=== PATIENT | female | born 1970 | race Caucasian/White ===

== ENCOUNTER → 2020-07-21 16:06 | Outpatient (CLI) | payer OTHER, BC, SELFPAY ==
--- NOTE | ~2020-07-21 | XR_ITS ---
EXAMINATION: XR lumbar spine 2-3V DATE: 07/21/2020 16:24 INDICATION: Lumbosacral radiculopathy TECHNIQUE: Anteroposterior and lateral views of the lumbar spine, and cone-down lateral view of the l umbosacral junction were obtained. COMPARISON: None. FINDINGS: There is no fracture, dislocation, or subluxation. The vertebral body heights are maintaine d. There is mild loss of intervertebral disc space height at L5-S1. Small degenerative osteophytes pr oject from the anterior endplates of multiple vertebral bodies. A moderate volume of colonic stool is present. IMPRESSION: 1. Mild lumbar spondylosis without acute findings. Reviewed, dictated and finalized at location A. POOER
== END ==
PROVIDERS: PCP Family Medicine; Visit Provider Family Medicine
DX: M47.26 Other spondylosis with radiculopathy, lumbar region (principal)
CPT/HCPCS: 72100

== ENCOUNTER 2020-08-26 07:30 | Outpatient (RCR) | payer OTHER, BC, SELFPAY ==
--- NOTE | 2020-07-26 11:10 | PTOPEVAL ---
Thank you for referring Lina Beth to [facility].? The patient is scheduled to be seen for therapy? 2 x/week for 5 weeks. Please review, sign, date and return this plan of care MART. I agree with and certify that the following plan of care is medically necessary. Referring Physician Date Attending Provider: Susanna Engle MD *PT Outpatient Evaluation Start: 07/26/20 09:41 Freq: Status: Active Protocol: Document 07/26/20 09:46 JIM (Rec: 07/26/20 10:44 JIM [id number]) Therapy Assessment Status Assessment Status Assessment Status Evaluation Outpatient Past Medical History Past Medical History Source of Past Medical History Patient,Recalled from Previous Visit, Confirmed with Patient /Family Neurological History Hx Neurological Disorders No Significant History Cardiovascular History Hx Cardiac Disorders No Significant History Respiratory History Hx Respiratory Disorders No Significant History Gastrointestinal History Hx Gastrointestinal Disorders No Significant History Musculoskeletal History Hx Back Pain Yes Hx Orthopedic Surgery Yes: right meniscus repair Endocrine History Hx Endocrine Disorders No Significant History Evaluation Information Problem Diagnosis back pain wiht r Onset summer 2019 Cause yardwork Additional Evaluation Detail She has been placed on an anti inflammatory that has improved her symptoms. Subjective Information She was doing a lot of outside Query Text:As Reported By Patient/ yard work of shoveling and Family lifting this summer. She noticed soreness that did not improve. In Apr she was driving a lower sport car with manual transmission. She reports left low back and left leg pain. She has tried chiropractor and stretching without improved symptoms. She reports increased pain with sitting, sleeping and lifting act. Reports symptoms are improved in standing. She has trouble lifting left LE with ADL's. She is usually a side sleeper, but has increased pain. Radiating pain from hip to
--- NOTE | 2020-08-23 07:40 | PCPTNOTE ---
Patient called & cancelled scheduled appointment this date per therapist.
--- NOTE | 2020-08-26 10:54 | PTOPEVAL ---
Thank you for referring Lina Beth to [facility].? Pt has been seen for 9 therapy visits to address back and leg symptoms. She demonstrates a decline in her function, joint motion and strength regardless of therapy treatment provided. Recommend Lina to f/u with her doctor to determine the next treatment option for her symptoms. Will hold chart open for 30 days. If no additional visits scheduled, this note will be her discharge note. Please review, sign, date and return this plan of care MART. I agree with and certify that the following plan of care is medically necessary. Referring Physician Date Attending Provider: Susanna Engle MD Referring Provider: *PT Outpatient Evaluation Start: 07/26/20 09:41 Freq: Status: Active Protocol: Document 08/26/20 07:33 CAP (Rec: 08/26/20 08:21 CAP [id number]) Therapy Assessment Status Assessment Status Assessment Status Re-evaluation Outpatient Past Medical History Past Medical History Source of Past Medical History Patient,Recalled from Previous Visit, Confirmed with Patient /Family Neurological History Hx Neurological Disorders No Significant History Cardiovascular History Hx Cardiac Disorders No Significant History Respiratory History Hx Respiratory Disorders No Significant History Gastrointestinal History Hx Gastrointestinal Disorders No Significant History Musculoskeletal History Hx Back Pain Yes Hx Orthopedic Surgery Yes: right meniscus repair Endocrine History Hx Endocrine Disorders No Significant History Evaluation Information Problem Diagnosis back pain with radiating symptoms Onset summer 2019 Cause yardwork Additional Evaluation Detail She has been placed on an anti inflammatory that has improved her symptoms. Subjective Information She reports a change in pain Query Text:As Reported By Patient/ with increased pain with Family distance walking that seems to increase vs decrease. She reports continued left low back with radiating symptoms into left leg pain. She reports cont increased pain with sitting, sleeping and lifting act. Reports symptoms are improved in standing. She has trouble lifting left LE with ADL's. Radiating pain is sharp/ache with radiating numbness/
--- NOTE | 2020-09-28 10:38 | PCPTNOTE ---
Admitting Provider: Attending Provider: Susanna Engle MD Patient:Lina Beth Date of :1970 Patient has not returned for any further treatments since 08/26/2020, therefore she will be discharged at this time. Patient?s was seen from 07/26/2020 -08/26/20 for 9 visits. An update had been sent to MD at her last visit with DC recommended on 08/26/20. The goals have been partially met. Thank you for referring this patient to [facility]. Please review, sign, date and return this discharge summary MART.
== END 2020-09-28 12:50 | disposition home or self-care (01) ==
LOC: ANHPT 07:30
PROVIDERS: PCP Family Medicine; Visit Provider Family Medicine
DX: M54.17 Radiculopathy, lumbosacral region (principal)
CPT/HCPCS: 97014; 97110; 97140; 97162; G0283

== ENCOUNTER → 2020-09-04 11:41 | Outpatient (CLI) | payer OTHER, BC, SELFPAY ==
--- NOTE | ~2020-09-04 | MR_ITS ---
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 TECHNIQUE: Multi-sequential, multiplanar MR images of the lumbar spine were obtained without contrast . Sagittal T1, T2, T2 fat saturation images. Axial T2 weighted images. There is no prior study for comparison. FINDINGS: There is 4 mm retrolisthesis L5 on S1 with mild to moderate loss of this disc height. The v ertebral bodies are otherwise aligned. The vertebral body and disc heights are otherwise well maintai alvin. The conus medullaris terminates at the T12-L1 level and has normal signal intensity and morpholo gy. There are no suspicious marrow signal abnormalities. Paraspinal soft tissue is unremarkable. Level by level evaluation: T11-12: Disc does not extend beyond the endplate margin. Facet arthropathy: Mild. Neural foraminal stenosis: No stenosis. Central canal stenosis: No stenosis. T12-L1: Disc does not extend beyond the endplate margin. Facet arthropathy: None. Neural foraminal stenosis: No stenosis. Central canal stenosis: No stenosis. L1-L2: Disc does not extend beyond the endplate margin. Facet arthropathy: Mild. Neural foraminal stenosis: No stenosis. Central canal stenosis: No stenosis. L2-L3: There is a minimal diffuse disc bulge. Facet arthropathy: Mild. Neural foraminal stenosis: No stenosis. Central canal stenosis: No stenosis. L3-L4: There is a mild diffuse disc bulge. Facet arthropathy: Mild. Neural foraminal stenosis: No stenosis. Central canal stenosis: No stenosis. L4-L5: There is a mild to moderate diffuse disc bulge. Facet arthropathy: Mild to moderate. Neural foraminal stenosis: No stenosis. Central canal stenosis: Mild. L5-S1: There is a moderate diffuse disc bulge. Facet arthropathy: Mild. Neural foraminal stenosis: Mild left. Central canal stenosis: Mild to moderate, mild narrowing of the left lateral recess. IMPRESSION: L5-S1 grade 1 retrolisthesis, moderate disc bulge. Reviewed, dictated and finalized at location A. [employer]
== END ==
PROVIDERS: PCP Family Medicine; Visit Provider Family Medicine
DX: M47.27 Other spondylosis with radiculopathy, lumbosacral region (principal); M48.07 Spinal stenosis, lumbosacral region
CPT/HCPCS: 72148

== ENCOUNTER 2021-02-17 17:13 | Emergency (ER) | payer OTHER, BC, SELFPAY ==
--- NOTE | ~2021-02-17 | XR_ITS ---
XR foot LT min 3V 02/17/2021 17:31 INDICATION: Left foot pain PROCEDURE: 4 views left foot COMPARISON: 06/15/2015 FINDINGS: Fracture, dislocation or subluxation is not identified. Lisfranc joint intact. The soft tis sues appear within normal limits. No foreign bodies are identified. There is prominent degenerative calcaneal enthesophyte. IMPRESSION: 1: NO ACUTE BONE OR JOINT ABNORMALITY IDENTIFIED. Reviewed, dictated and finalized at location A.
[2021-02-17 17:38] VITALS: BP 102/84; PULSE 60; RESP 16; TEMP 37.4; O2SAT 100
--- NOTE | 2021-02-17 18:04 | ED.LOWEXIN ---
HPI - Extremity Injury (Lower) General Chief Complaint: Extremity Injury, Lower Stated Complaint: lt foot injury Source: patient and RN notes reviewed Limitations: no limitations History of Present Illness HPI Narrative: The patient presents with left foot pain that is mild, worse with motion, better at rest, it began half day ago when it was caught in a door. No bleeding, deformity, and pain is most predominant on the metatarsals and arch Related Data Home Medications Medication Instructions Recorded Confirmed fluticasone propionate 50 1 spray INTRANASAL DAILY 07/21/20 02/17/21 mcg/actuation nasal spray,suspension Allergies Allergy/AdvReac Type Severity Reaction Status Date / Time nitrofurantoin Allergy Unknown MUSCLE AND Verified 02/17/21 17:43 BONE ACHES Review of Systems Review of Systems: Narrative: General/Constitutional: No weight loss,fever Eyes: N0: Redness,discharge Ears/Nose/Throat: No: Epistaxis,ear discharge Respiratory: Denies: Hemoptysis Gastrointestinal: No Vomiting, Bleeding-rectal Skin: No Lumps, eruption Neurologic: No Focal Weakness,Sz Hematologic: Denies: Petechiae/Purpura Psychiatric: No: Suicida ideationl All Other Systems: Reviewed and Negative PMFSH Family History Family History Grandparent Hypertension Malignant neoplasm of prostate Family history of malignant neoplasm of urinary bladder Diabetes mellitus Family history of cardiovascular disease Family history of Alzheimer's disease Father Malignant neoplasm of prostate Alzheimer disease Mother Family history of cardiovascular disease A-fib Other Family history of arthritis Family history of elevated blood lipids Social History Social History Alcohol intake: current Comments At time of signature, agree with nursing past medical, surgical, social and family history. There is no relevant family history pertinent to the presenting complaint Exam Narrative: Exam Narrative: General Appearance: Well appearing, Well nourished, conjunctiva clear Mouth/Throat: Normal appearing, Normal lips, Supple Respiratory: Airway patent, No respiratory distress MS-foot: Nl strength (mostly intact, limited flexion/extension by pain), Tenderness (proximal metatarsals, with mild decreased ROM), no swelling , Other (no anterior drawer, no collateral laxity, no Achilles tenderness, no fifth MT tenderness) Skin: Warm, Dry, Normal color Neurological: A&O x3, Speech clear,, Normal affect Course Course Emergency Course: Films visualized, interpreted by radiologist, agree, normal see report Vital Signs Vital signs: Vital Signs Temperature 99.3 F 02/17/21 17:38 Pulse Rate 60 02/17/21 17:38 Respiratory Rate 16 02/17/21 17:38 Blood Pressure 102/84 02/17/21 17:38 Pulse Oximetry 100 02/17/21 17:38 Temperature 99.3 F 02/17/21 17:38 Pulse Rate 60 02/17/21 17:38 Respiratory Rate 16 02/17/21 17:38 Blood Pressure 102/84 02/17/21 17:38 Pulse Oximetry 100 02/17/21 17:38 Discharge Plan Discharge Clinical Impression: Contusion of foot, left Qualifiers: Encounter type: initial encounter Qualified Code(s): S90.32XA - Contusion of left foot, initial encounter Patient Disposition: Home, Self-Care Condition: Stable Instructions: Foot Sprain (ED) Prescriptions: New tramadol 50 mg tablet 50 - 75 mg PO TID PRN (Reason: pain) Qty: 20 RF: 0 No Action fluticasone propionate [Flonase Allergy Relief] 50 mcg/actuation spray,suspension 1 spray intranasal DAILY RF: 0 Follow-up/Referrals: Susanna Engle MD [Primary Care Provider] -
== END 2021-02-17 18:35 | disposition home or self-care (01) ==
PROVIDERS: Emergency Provider Emergency Medicine; PCP Family Medicine
DX: S90.32XA Contusion of left foot, initial encounter (principal); W23.0XXA Caught, crushed, jammed, or pinched between moving objects, initial encounter
CPT/HCPCS: 73630; 99213; G0463

== ENCOUNTER → 2022-05-19 07:35 | Outpatient (CLI) | payer OTHER, BC, SELFPAY ==
--- NOTE | ~2022-05-19 | MR_ITS ---
EXAMINATION: MR knee LT wo con DATE: 05/19/2022 08:22 INDICATION: Left knee pain TECHNIQUE: Magnetic resonance imaging (MRI) of the left knee was performed without intravenous contra st. Sequences included coronal PD-weighted FSE, coronal PD-weighted FS FSE, sagittal T2-weighted FSE , sagittal PD-weighted FS FSE and axial PD weighted fat saturated FSE. COMPARISON: Left knee radiographs dated 05/03/2022 FINDINGS: Medial compartment: Medial meniscal tear, complex at the meniscal body and with a longitudinal horizontal tear plane exte nding more posteriorly into the posterior horn. Mild partial-thickness cartilage loss with minimal ch ondral surface regularity along the anterior to central weightbearing medial femoral condyle and cent ral aspect of the medial tibial plateau. Lateral compartment: Lateral meniscus is normal. Partial-thickness cartilage loss with smooth chondral surface along the l ateral half of the posterior weightbearing lateral femoral condyle. Patellofemoral compartment: Deep chondral fissuring with mild underlying subarticular cystlike and edema-like changes at the figueredo llar apical ridge and the cephalad aspect of the medial facet. Additional deep chondral fissuring at the caudal aspect of the lateral trochlea and trochlear groove. Ligaments and tendons: Anterior and posterior cruciate ligaments are normal. The medial collateral ligament and fibular hermila ateral ligament complex are normal. The extensor mechanism is normal. The visualized medial and later al hamstring tendons as well as the iliotibial band are normal. Fluid: Physiologic amount of fluid in the joint space. No loose osteochondral bodies identified. Small Weber 's cyst with trace amount of fluid. Osseous/other: Aside from the mild subarticular edema-like signal change at the patella there is normal marrow signa l. No fracture or pathologic marrow replacing process. IMPRESSION: 1. Complex medial meniscal tear. 2. 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 Reviewed, dictated and finalized at location A. IMPRESSION: 1. Complex medial meniscal tear. 2. 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
== END ==
PROVIDERS: PCP Family Medicine; Visit Provider Orthopaedic Surgery
DX: S83.232D Complex tear of medial meniscus, current injury, left knee, subsequent encounter (principal); X58.XXXD Exposure to other specified factors, subsequent encounter; M17.12 Unilateral primary osteoarthritis, left knee
CPT/HCPCS: 73721

== ENCOUNTER 2022-05-26 00:54 | Day surgery (SDC) | payer OTHER, BC, SELFPAY ==
[2022-05-12 10:15] VITALS: BMI 34.0
[2022-05-26 10:29] VITALS: BP 120/70; PULSE 59; RESP 17; TEMP 36.3; O2SAT 100
[2022-05-26] MEDS: LACTATED RINGERS 1,000 ML 150 ML IV CONT (10:38)
--- NOTE | 2022-05-26 10:40 | WPDANESEPPF ---
Anes - Initial Pre Proc Eval Procedure: Operation Date: 05/26/22 11:30 Proposed Procedures p Screening Colonoscopy - Delio Retana MD Date/Time: 05/26/22 10:40 Surgeon: Delio Retana MD Pre Op Diagnosis: neoplasm screening Patient Data Age: 51 Gender: F Height: 1.75 m Weight: 107.1 kg Last Vital Signs Temp 97.3 F L 05/26/22 10:29 Pulse 59 L 05/26/22 10:29 Resp 17 05/26/22 10:29 BP 120/70 05/26/22 10:29 Pulse Ox 100 05/26/22 10:29 O2 Del Method Room Air 05/26/22 10:29 Allergies Allergy/AdvReac Type Severity Reaction Status Date / Time nitrofurantoin Allergy Unknown MUSCLE AND Verified 05/26/22 10:27 BONE ACHES Home Medications Medication Instructions Recorded Confirmed Type fluticasone propionate 50 1 spray intranasal DAILY 07/21/20 05/26/22 History mcg/actuation nasal spray,suspension (Flonase Allergy Relief) tizanidine 4 mg tablet 4 mg PO QHS PRN Sleep 04/20/21 05/26/22 History atorvastatin 20 mg tablet 20 mg PO QHS #90 tabs 04/20/22 05/26/22 Rx semaglutide 0.25 mg or 0.5 mg (2 0.25 mg (0.2 mL) subcut WEEKLY 04/20/22 05/26/22 Rx mg/1.5 mL) subcutaneous pen #1.5 mL injector duloxetine 30 mg capsule,delayed 60 mg PO DAILY 05/12/22 05/26/22 History release multivitamin 1 tablet PO DAILY 05/12/22 05/26/22 History Patient hx anesthesia problems: none Family hx anesthesia problems: none Results Review: All pre-operative results and documents have been reviewed as part of the pre-operative evaluation. [facility] Past Medical History Medical History (Updated 05/08/22 @ 17:53 by Sruthi Hammond) Acute medial meniscus tear of left knee Depression Thoracic outlet syndrome dr. cline Surgical History Surgical History (Updated 05/08/22 @ 17:54 by Sruthi Hammond) H/O arthroscopic knee surgery Right knee arthroscopy by Dr. Mccartney on 02/06/19 Family History Family History Grandparent Hypertension Malignant neoplasm of prostate Family history of malignant neoplasm of urinary bladder Diabetes mellitus Family history of cardiovascular disease Family history of Alzheimer's disease Father Malignant neoplasm of prostate Alzheimer disease Mother Family history of cardiovascular disease A-fib Other Family history of arthritis Family history of elevated blood lipids Social History Social History Smoking status: Never smoker Alcohol intake: current Substance use: never Substance use type: does not use Living arrangements: with family Spiritual care concerns: No Anes - Eval Final PreProcedure Day of Procedure 05/26/22 10:40 Patient weight: obese Heart: regular rate and rhythm Lungs: clear to auscultation Airway: Mallampati scale class II Neurological: alert and oriented Last oral intake: >/= 8 hours ASA classification: II Emergent: no Anesthetic plan: proceed Anesthesia type and monitoring: general GIVS and standard monitoring Results Review: All pre-operative results and documents have been reviewed as part of the pre-operative evaluation. Informed Consent: The patient's anesthetic plan and its attendant risks and benefits were discussed with the patient/family/POA. Questions were solicited and answers provided to the satisfaction of the patient/family/POA.
--- NOTE | 2022-05-26 10:52 | PM.HPGS ---
History of Present Illness History of Present Illness Consent: Risks, benefits, and alternatives have been discussed and questions answered. Patient agrees to proceed with procedure. Chief complaint: neoplasm screening Narrative: Lina Beth is a 51 year old female Presents for screening colonoscopy. Patient's current weight appetite and bowel movements are normal. Patient denies abdominal pain. She has had no bleeding. Family history is non contributory. Patient reports a thrombosed hemorrhoid was evaluated by colonoscopy 10 years ago. Patient presents today for neoplasia screening. Review of Systems Review of Systems: Review of systems noncontributory. [facility] Past Medical History Medical History (Updated 05/26/22 @ 10:53 by Delio Retana MD) Acute medial meniscus tear of left knee Depression Thoracic outlet syndrome dr. cline Surgical History Surgical History (Updated 05/08/22 @ 17:54 by Sruthi Hammond) H/O arthroscopic knee surgery Right knee arthroscopy by Dr. Mccartney on 02/06/19 Family History Family History Grandparent Hypertension Malignant neoplasm of prostate Family history of malignant neoplasm of urinary bladder Diabetes mellitus Family history of cardiovascular disease Family history of Alzheimer's disease Father Malignant neoplasm of prostate Alzheimer disease Mother Family history of cardiovascular disease A-fib Other Family history of arthritis Family history of elevated blood lipids Social History Social History Smoking status: Never smoker Alcohol intake: current Substance use: never Substance use type: does not use Living arrangements: with family Spiritual care concerns: No Meds Home Medications and Allergies Home Medications Medication Instructions Recorded Confirmed Type fluticasone propionate 50 1 spray intranasal DAILY 07/21/20 05/26/22 History mcg/actuation nasal spray,suspension (Flonase Allergy Relief) tizanidine 4 mg tablet 4 mg PO QHS PRN Sleep 04/20/21 05/26/22 History atorvastatin 20 mg tablet 20 mg PO QHS #90 tabs 04/20/22 05/26/22 Rx semaglutide 0.25 mg or 0.5 mg (2 0.25 mg (0.2 mL) subcut WEEKLY 04/20/22 05/26/22 Rx mg/1.5 mL) subcutaneous pen #1.5 mL injector duloxetine 30 mg capsule,delayed 60 mg PO DAILY 05/12/22 05/26/22 History release multivitamin 1 tablet PO DAILY 05/12/22 05/26/22 History Allergies Allergy/AdvReac Type Severity Reaction Status Date / Time nitrofurantoin Allergy Unknown MUSCLE AND Verified 05/26/22 10:27 BONE ACHES Vital Signs Vital Signs - 24 hr 05/26/22 10:29 Temperature 97.3 F L Pulse Rate 59 L Respiratory Rate 17 Blood Pressure 120/70 Pulse Oximetry 100 Oxygen Delivery Room Air Exam Narrative: Physical exam reveals patient to be alert. Vital signs stable. HEENT exam is unremarkable. Patient is anicteric. Lungs are clear to auscultation and percussion. Heart is without murmur or extra sounds. Abdomen bowel sounds present soft nontender with no organomegaly. Digital external rectal exam is normal. Assessment and Plan Assessment and plan (1) Encounter for screening colonoscopy: Code(s): Z12.11 - Encounter for screening for malignant neoplasm of colon Status: Acute Assessment and Plan: Patient presents for screening colonoscopy. She appears be at average risk for colon polyps. Further recommendations may be given after endoscopy.
[2022-05-26 11:29] VITALS: BP 86/40; PULSE 74; RESP 15; O2SAT 100
[2022-05-26 11:39] VITALS: BP 108/50; PULSE 67; RESP 14; O2SAT 100
[2022-05-26 11:49] VITALS: BP 108/57; PULSE 62; RESP 21; O2SAT 100
== END 2022-05-26 11:51 | disposition home or self-care (01) ==
PROVIDERS: PCP Family Medicine; Visit Provider Internal Medicine Gastroenterology
PROC: 0DJD8ZZ Inspection of Lower Intestinal Tract, Via Natural or Artificial Opening Endoscopic (ICD-10-PCS; CPT 45378; principal; 2022-05-26 11:30)
DX: Z12.11 Encounter for screening for malignant neoplasm of colon (principal); K64.8 Other hemorrhoids; F32.A Depression, unspecified; G54.0 Brachial plexus disorders; E66.9 Obesity, unspecified; Z68.34 Body mass index [BMI] 34.0-34.9, adult
CPT/HCPCS: 45378; J2001; J2704; J7120

== ENCOUNTER 2022-06-10 06:56 | Outpatient (CLI) | payer OTHER, BC, SELFPAY ==
--- NOTE | 2022-06-10 07:08 | ECG_ITS ---
Measurements Intervals [place] Rate: 57 P: 39 KS: 163 QRS: 66 QRSD: 113 T: 49 QT: 410 QTc: 402 Interpretive Statements SINUS BRADYCARDIA INCOMPLETE RIGHT BUNDLE BRANCH BLOCK [90+ ms QRS DURATION, TERMINAL R IN V1/V2, 40+ ms S IN I/aVL/V4/V5/V6] NO PREVIOUS ECG AVAILABLE FOR COMPARISON Electronically Signed On 06-10-2022 13:07:06 CDT by Rossana Geiger M.D.
== END 2022-06-10 06:57 | disposition home or self-care (01) ==
LOC: ANHCARD 07:00
PROVIDERS: PCP Family Medicine; Visit Provider Orthopaedic Surgery
DX: E78.2 Mixed hyperlipidemia (principal); Z01.818 Encounter for other preprocedural examination; I45.10 Unspecified right bundle-branch block
CPT/HCPCS: 93005

== ENCOUNTER 2022-06-15 02:45 | Day surgery (SDC) | payer OTHER, BC, SELFPAY ==
[2022-06-09 10:33] VITALS: BMI 33.2
--- NOTE | 2022-06-09 10:38 | PC.NURSE ---
Report to the Outpatient Waiting Room, entrance under the green pavilion located off [facility], at time 9:30 on date 06/15/22. Planned Procedure Time: 11:30. Time changes happen often and if your time is changed the preop area will call you the afternoon before. - You and your visitor will be asked to self-screen and do not enter if you have any COVID symptoms. - We encourage only one visitor and NO visitors under age 16 are allowed at this time. Your visitor will receive communication by the phone number that is given day of service. - The patient visitor is requested to social distance or may leave the building when not with patient due to restrictions. - A mask is OPTIONAL within the hospital. Patients may have clear liquids (water, carbonated beverages, clear teas, apple juice) until 3 hours prior to surgery (8:30) with a maximum of 20 ounces. - No food from midnight until time of surgery Take the following medications with a SIP of water the morning of surgery: NONE Medications to discontinue per physician: VITAMIN Date to take last dose: 06/11/22 STOP ALEVE 7 DAYS BEFORE SURGERY Please no make-up, nail mohawk, hairspray, perfume, deodorant, or body powder the day of surgery. No jewelry (including any body piercings) or valuables the day of surgery, leave them at home. Please take a shower or bath the night before, or the morning of, surgery with an antibacterial soap. Wear comfortable, loose fitting clothing. - Jewelry must be removed prior to entering the operating room. Rings and piercings that are not removed may be cut off. - The hospital will not accept responsibility for valuables. - Please leave all valuables, including medications, at home the day of surgery. If you are going home after surgery, a licensed line haul driver must drive you home. - NO public transportation without another adult. - We recommend that an adult stay with you for 24 hours following discharge. - We also recommend that you do not drive, make important decision, drink alcoholic beverages, or take any drugs that were not prescribed by your health care provider for at least 24 hours after your discharge time. Follow any additional instructions given to you from your surgeon. If you or anyone in your household have experienced Covid symptoms in the past week, please notify your surgeon or the nurse liaison at the phone number below for possible testing. Telephone instructions given to ANSON SERNA and asked if any additional questions and then verbalized understanding. Patient advised to call surgeon office or pre surgery nurse liaison [phone] if any additional questions.
[2022-06-15] VITALS (8 sets, daily range): BP systolic 103–115; BP diastolic 49–74; PULSE 63–96; RESP 12–20; TEMP 36.7–36.9; O2SAT 97–100
--- NOTE | 2022-06-15 06:58 | WPDHPUPDATE1 ---
History and Physical Update Update Date/Time: 06/15/22 06:58 History and Physical has been reviewed, including an updated exam of the patient. There are NO changes in the patient's condition. Risks, benefits, and alternatives have been discussed and questions answered. Patient agrees to proceed with procedure.
[2022-06-15] MEDS: ACETAMINOPHEN 500 MG TABLET 1000 MG PO (09:30)
[2022-06-15] MEDS: KETOROLAC 15 MG/ML VIAL (*BKC) IV PUSH (09:30)
[2022-06-15] MEDS: LACTATED RINGERS 1,000 ML 30 ML IV CONT ×2 (09:30→12:28)
--- NOTE | 2022-06-15 10:17 | WPDANESEPPF ---
Anes - Initial Pre Proc Eval Procedure: Operation Date: 06/15/22 10:30 Proposed Procedures p Left Knee Arthroscopy, Debride Meniscus, Synovectomy, Chondroplasty, Proceed As Indicated - Jose Mccartney MD Date/Time: 06/15/22 10:17 Surgeon: Jose Mccartney MD Pre Op Diagnosis: left knee pain,left meniscus tear,synovitis Patient Data Age: 51 Gender: F Height: 1.75 m Weight: 107.2 kg Last Vital Signs Temp 36.9 C 06/15/22 09:31 Pulse 81 06/15/22 09:31 Resp 14 06/15/22 09:31 BP 115/74 06/15/22 09:31 Pulse Ox 97 06/15/22 09:31 O2 Del Method Room Air 06/15/22 09:31 Allergies Allergy/AdvReac Type Severity Reaction Status Date / Time nitrofurantoin Allergy Unknown MUSCLE AND Verified 06/15/22 09:38 BONE ACHES Home Medications Medication Instructions Recorded Confirmed Type fluticasone propionate 50 1 spray intranasal DAILY 07/21/20 06/09/22 History mcg/actuation nasal spray,suspension (Flonase Allergy Relief) tizanidine 4 mg tablet 4 mg PO QHS PRN Sleep 04/20/21 06/09/22 History atorvastatin 20 mg tablet 20 mg PO QHS #90 tabs 04/20/22 06/09/22 Rx duloxetine 30 mg capsule,delayed 60 mg PO DAILY 05/12/22 06/09/22 History release multivitamin 1 tablet PO DAILY 05/12/22 06/09/22 History naproxen sodium 220 mg tablet 220 mg PO BID PRN Pain 06/09/22 06/09/22 History (Aleve) semaglutide 0.25 mg or 0.5 mg (2 0.25 mg subcut WEEKLY WEIGHT LOSS 06/09/22 06/09/22 History mg/1.5 mL) subcutaneous pen injector Patient hx anesthesia problems: none Family hx anesthesia problems: none Results Review: All pre-operative results and documents have been reviewed as part of the pre-operative evaluation. [facility] Past Medical History Medical History Acute medial meniscus tear of left knee Chondromalacia, left knee Depression Thoracic outlet syndrome dr. cline Surgical History Surgical History H/O arthroscopic knee surgery Right knee arthroscopy by Dr. Mccartney on 02/06/19 Family History Family History Grandparent Hypertension Malignant neoplasm of prostate Family history of malignant neoplasm of urinary bladder Diabetes mellitus Family history of cardiovascular disease Family history of Alzheimer's disease Father Malignant neoplasm of prostate Alzheimer disease Mother Family history of cardiovascular disease A-fib Other Family history of arthritis Family history of elevated blood lipids Social History Social History Smoking status: Never smoker Alcohol intake: never Substance use: never Substance use type: does not use Living arrangements: with family Spiritual care concerns: No Anes - Eval Final PreProcedure Day of Procedure 06/15/22 10:17 Patient weight: obese Heart: regular rate and rhythm Lungs: clear to auscultation Airway: Mallampati scale class II Neurological: alert and oriented Last oral intake: >/= 8 hours ASA classification: II Emergent: no Anesthetic plan: proceed Anesthesia type and monitoring: general LMA and standard monitoring Results Review: All pre-operative results and documents have been reviewed as part of the pre-operative evaluation. Informed Consent: The patient's anesthetic plan and its attendant risks and benefits were discussed with the patient/family/POA. Questions were solicited and answers provided to the satisfaction of the patient/family/POA.
[2022-06-15] MEDS: SCOPOLAMINE 1.5 MG PATCH TRANSDERM (10:30)
[2022-06-15] MEDS: ceFAZolin 2 GM/D5W 50 ML 2 GM/50 ML BAG IVPB (11:21)
[2022-06-15] MEDS: BUPIVACAINE/EPINEPHRINE 0.25% 50 ML VIAL 20 ML INFILTRATE (12:04)
[2022-06-15] MEDS: BUPIVACAINE HCL 0.25% PF 30 ML VIAL 20 ML INFILTRATE (12:21)
--- NOTE | 2022-06-15 12:39 | P.OP_ITS ---
Procedure Note - Detailed Date of Procedure 06/15/22 Pre-op Diagnosis left knee pain,left meniscus tear,synovitis Post-op Diagnosis Same Procedure Performed Left knee arthroscopy with partial medial meniscectomy, chondroplasty Surgeon Jose Mccartney MD Anesthesia General Indications 51-year-old woman with left knee pain. MRI demonstrate medial meniscus tear chondromalacia. She has failed conservative treatment with injections, anti- inflammatories and therapy. Presents now for operative treatment. Findings Left knee complex tear body and posterior horn medial meniscus. Grade 1 chondromalacia medial femoral condyle. Grade 3 chondromalacia femoral trochlea. Description of Procedure Informed consent given by patient. Operative extremity marked in preoperative holding area. Patient received intravenous antibiotics. Patient brought to operating room and underwent general anesthetic by anesthesia team. Positioned supine on operating room table. Left leg placed into a posterior thigh leg sales. Foot of the table dropped to 90? and right leg padded out of the field. Time-out performed confirming patient, site of surgery and plan. Left knee prepped and draped in usual sterile surgical fashion using ChloraPrep skin solution. Standard arthroscopic portals made by using a 11 blade knife for the anterior lateral portal 1st. Capsule penetrated bluntly. Camera and inflow started. The below operative findings noted. Intra-articular visualization used to position the anterior medial portal using 22 gauge spinal needle. A 11 blade knife used for the skin and blunt penetration of the capsule. 4.7 millimeter arthroscopic shaver introduced and partial medial meniscectomy of the loose and torn portion performed. Edge of meniscus completed with arthroscopic Wand. Arthroscopic Wand used to perform chondroplasty of the patellofemoral articulation and the medial femoral condyle. Shaver reintroduced and a synovectomy performed of the anterior fat pad and extensive synovium as well as medial and lateral plica. Bleeding points coagulated with Wand. Knee inspected, no loose pieces noted. 1 liter of irrigant infused and suction out. Arthroscopic cannulas removed. Skin closed with 4 nylon interrupted suture. Local anesthetic with 0.25% Marcaine. Sterile dressing applied. Patient awoken from anesthesia, extubated and taken to recovery room in stable condition. All sponge needle and instrument counts correct at the end of the case. Estimated Blood Loss 5 Tourniquet Time 0 Drains No Packing No Pathology None sent Complications None Condition Stable Disposition PACU
== END 2022-06-15 14:07 | disposition home or self-care (01) ==
PROVIDERS: PCP Family Medicine; Visit Provider Orthopaedic Surgery
PROC: (CPT 29870; principal; 2022-06-15 10:30)
DX: S83.232A Complex tear of medial meniscus, current injury, left knee, initial encounter (principal); M22.42 Chondromalacia patellae, left knee; X50.0XXA Overexertion from strenuous movement or load, initial encounter; Y93.42 Activity, yoga; F32.A Depression, unspecified; E66.9 Obesity, unspecified; Z68.34 Body mass index [BMI] 34.0-34.9, adult
CPT/HCPCS: 29881; A9270; J0690; J1100; J1885; J2250; J2405; J2704; J3010; J7120

== ENCOUNTER → 2022-08-15 07:22 | Outpatient (CLI) | payer OTHER, BC, SELFPAY ==
--- NOTE | ~2022-08-15 | MM_ITS ---
EXAMINATION: MM screening [facility] BI w carlene HISTORY: Screening mammogram TECHNIQUE: Craniocaudal and mediolateral oblique 3-D tomosynthesis images were obtained and synthetic 2-D images were generated. CAD analysis was submitted and interpreted. COMPARISON: 10/24/2018, 09/12/2017, 09/07/2016 BREAST PARENCHYMAL COMPOSITION: There are scattered areas of fibroglandular density. FINDINGS: No suspicious mass, calcification, or architectural distortion are identified in either bianca ast to suggest malignancy. There has been no suspicious interval change. IMPRESSION: 1. No mammographic evidence of malignancy. 2. Recommend routine screening mammography in one year. BI-RADS Category 1: Negative Reviewed, dictated and finalized at location A. [facility] [employer]
== END ==
PROVIDERS: PCP Family Medicine; Visit Provider Family Medicine
DX: Z12.31 Encounter for screening mammogram for malignant neoplasm of breast (principal)
CPT/HCPCS: 77063; 77067

== ENCOUNTER 2022-08-22 15:46 | Outpatient (CLI) | payer OTHER, BC, SELFPAY ==
[2022-08-22 20:34] LABS: Hemoglobin A1C 5.4 % (<5.7)
[2022-08-22 20:56] LABS: Alanine Aminotransferase 25 U/L (6-35); Albumin Level 4.8 g/dL (3.5-5.1); Alkaline Phosphatase 103 U/L (38-126); Anion Gap 9 mmol/L (8-16); Aspartate Amino Transferase 30 U/L (14-36); Bilirubin,Total 0.3 mg/dL (0.2-1.3); Blood Urea Nitrogen 18 mg/dL (7-17); Calcium 9.5 mg/dL (8.4-10.2); Carbon Dioxide 30 mmol/L (22-30); Chloride 102 mmol/L (98-107); Cholesterol 166 mg/dL (0-200); Estimated Glomerular Filt Rate > 60; Glucose 84 mg/dL (65-110); HDL Direct 49 mg/dL; Potassium 4.2 mmol/L (3.4-5.0); Sodium 141 mmol/L (137-145); Triglycerides 152 mg/dL (<150)
[2022-08-22 21:06] LABS: LDL Cholesterol Direct 72 mg/dL
== END 2022-08-22 15:47 | disposition home or self-care (01) ==
LOC: ANHGOSHLAB 15:48
PROVIDERS: PCP Family Medicine; Visit Provider Family Medicine
DX: E78.2 Mixed hyperlipidemia (principal)
CPT/HCPCS: 36415; 80053; 80061; 83036

== ENCOUNTER 2023-12-03 13:18 | Outpatient (CLI) | payer OTHER, BC, SELFPAY ==
--- NOTE | ~2023-12-03 | MM_ITS ---
EXAMINATION: MM screening [facility] BI w carlene HISTORY: Screening mammogram TECHNIQUE: Craniocaudal and mediolateral oblique 3-D tomosynthesis images were obtained and synthetic 2-D images were generated. Bilateral rotated lateral CC views. CAD analysis was submitted and interp reted. COMPARISON: 09/01/2022, 10/24/2018 bilateral screening mammogram examinations BREAST PARENCHYMAL COMPOSITION: There are scattered areas of fibroglandular density. FINDINGS: There is no evidence of suspicious mass, calcification, or architectural distortion to sugg est malignancy in either breast. There has been no suspicious interval change. IMPRESSION: 1. No mammographic evidence of malignancy. 2. Recommend routine screening mammography in one year. BI-RADS Category 1: Negative Reviewed, dictated and finalized at location A.
== END 2023-12-03 13:19 ==
LOC: MICIMG 13:19
PROVIDERS: PCP Family Medicine; Visit Provider Family Medicine
DX: Z12.31 Encounter for screening mammogram for malignant neoplasm of breast (principal)
CPT/HCPCS: 77063; 77067

== ENCOUNTER 2024-01-05 07:18 | Outpatient (CLI) | payer BC, SELFPAY ==
--- NOTE | ~2024-01-05 | US_ITS ---
EXAMINATION: US abdomen limited DATE: 01/05/2024 07:42 INDICATION: Abnormal liver function tests. Other specified abnormal findings of blood chemistry. TECHNIQUE: Multiple grayscale and Doppler ultrasound images of the abdomen were obtained. COMPARISON: Abdomen ultrasound 02/07/2013 FINDINGS: The visualized portions of the head, body, and tail of the pancreas are normal. The liver i s normal without focal lesion. No liver surface nodularity. There is normal flow in main portal vein. The gallbladder is normal in size. No gallstones or gallbladder wall thickening. There is no sonogra phic Martinez's sign. The common duct is normal and measures 4 mm. IMPRESSION: 1. Normal right upper quadrant ultrasound. Reviewed, dictated and finalized at location A.
== END 2024-01-05 07:19 ==
LOC: MICIMG 07:19
PROVIDERS: PCP Family Medicine; Visit Provider Family Medicine
DX: R79.89 Other specified abnormal findings of blood chemistry (principal)
CPT/HCPCS: 76705

== ENCOUNTER 2024-05-29 08:36 | Outpatient (CLI) | payer BC, OTHER, SELFPAY ==
[2024-06-18 14:06] VITALS: BMI 33.2
--- NOTE | 2024-06-18 14:06 | P.SLEEP_ITS ---
Sleep Study - Home Unattended Date of Study: 05/29/24 Ordering Provider: Susanna Engle MD Interpreting Provider: Jenifer Brown, DO Home Sleep Study Type: Watch PAT Height: 1.75 m Weight: 102.058 kg Body Mass Index: 33.2 Neck Circumference (inches): 15 [place]: 12 Reason for Sleep Study Daytime hypersomnia Sleep History The patient is a 53-year-old female that had a sleep study ordered by her primary care physician for evaluation of sleep apnea. The patient admits to loud snoring, excessive daytime sleepiness and trouble falling asleep and maintaining sleep. The patient denies choking or gasping while asleep. She denies having trouble breathing on her back. She denies having morning headaches. She denies having a dry or sore mouth/ throat in the morning. She denies nocturnal heartburn. She denies nocturia. She admits to having difficulty falling back asleep if she wakes up during the night. She denies using any hypnotics or sedatives. She denies feeling anxious about sleep. She admits to feeling tired or fatigued during the day. She admits to feeling tired in the morning. She does have the urge to fall asleep during the day. She denies feeling drowsy while driving. She denies sleep paralysis, cataplexy and hypnagogic / hypnopompic hallucinations. She admits to clenching or grinding her teeth. She admits to kicking or jerking her legs excessively. She admits to having a restless feeling in her legs that improves with activity but gets worse with rest. The restless feeling causes an urge to move her legs. The restless feeling is worse in the evening or at night and it does cause a disturbance in her sleep. She goes to bed at 9:30 p.m. on both weekdays and weekends. It takes her 45 minutes to fall asleep. She typically gets 5 hours of sleep per night. Her sleep is not restorative on her days. She denies taking planned naps. She denies behavior. She denies. She consumes 1-2 cups of caffeinated beverage per day. She denies tobacco and alcohol use. She exercises 3-4 nights per week. [facility] Past Medical History Medical History Acute medial meniscus tear of left knee Carpal tunnel syndrome, bilateral Chondromalacia, left knee Degenerative arthritis of left knee Depression Foot sprain History of COVID-19 reported by patient 2.[address] cline Surgical History Surgical History H/O arthroscopic knee surgery Right knee arthroscopy by Dr. Mccartney on 02/06/19 S/P left knee arthroscopy Family History Family History Grandparent Hypertension Malignant neoplasm of prostate Family history of malignant neoplasm of urinary bladder Diabetes mellitus Family history of cardiovascular disease Family history of Alzheimer's disease Father Malignant neoplasm of prostate Alzheimer disease Mother Family history of cardiovascular disease A-fib Other Family history of arthritis Family history of elevated blood lipids Social History Social History Smoking status: Never smoker Alcohol intake: never Substance use: never Substance use type: does not use Do You Feel Safe in your Home?: Yes Lack of Transportation: No Lack of Food: Never True Current Housing: I Have Housing Concerned About Future Housing: No Difficulty Paying Gas/Electric Bills: No Difficulty Paying for Meds: No Currently Unemployed: No Education: Bachelor's Degree Difficulty w/ Childcare or Family Care: No Living arrangements: with family Spiritual care concerns: No Medications Home Medications Medication Instructions Recorded Confirmed Type fluticasone propionate 50 1 spray intranasal DAILY 07/21/20 04/17/24 History mcg/actuation nasal spray,suspension (Flonase Allergy Relief) multivitamin 1 tablet PO DAILY 05/12/22 04/17/24 History blood-glucose sensor (FreeStyle #6 ea 06/26/23 02/20/24 Rx Leonides 3 Sensor device) fluorouracil 5 % topical cream 1 applic topical BID 4 weeks #40 04/17/24 04/17/24 Rx (Efudex) grams melatonin 10 mg capsule 10 mg PO QHS 04/17/24 04/17/24 History urea 10 % topical cream applic topical 04/17/24 04/17/24 History atorvastatin 20 mg tablet 20 mg PO QHS #90 tabs 05/19/24 Rx duloxetine 30 mg capsule,delayed 90 mg PO DAILY #180 caps 05/20/24 Rx release semaglutide (weight loss) 0.25 0.25 mg (0.5 mL) subcut WEEKLY #2 05/28/24 Rx mg/0.5 mL subcutaneous pen mL injector (Wegovy) tizanidine 4 mg tablet 4 mg PO QHS PRN Sleep #90 tabs 06/05/24 Rx hydrocortisone acetate 25 mg 25 mg RECTAL BID #12 ea 06/17/24 Rx rectal suppository (Anusol-HC) Sleep Procedure The sleep study was completed using RingCredibleT a technically adequate device with seven channels: peripheral arterial tone, actigraphy, body position, snore, respiratory movement, pulse oximetry, sleep staging, and heart rate. Prior to using the device, the patient received verbal and written instructions for its application and was provided with the help desk phone number for additional telephonic instruction with 24-hour availability of qualified personnel to answer questions. The study was scored using CMS guidelines. Sleep Architecture The total recording time is 8 hrs, 19 min. The total sleep time is 7 hrs, 25 min. Sleep latency is 26 minutes. REM latency is 152 minutes. The patient had 11 episodes of waking. Sleep architecture shows 1.0% deep sleep, 72.7% light sleep, and (as % Total Sleep Time) showed NREM (Light 72.7%; Deep 1.0%), and a 26.3% stage REM. The patient spent 39.8% of total sleep time in the supine position. Sleep efficiency was 89.18. Respiratory Analysis The overall AHI (pAHI 3%:) is 44.7. The central AHI is 19.6. The AHI was 46.0 in NREM and 40.5 in REM sleep. The AHI was 55.9 in Supine and 37.6 in Non-supine sleep. Percent of Domenico Mackenzie respirations is 0.0. Oximetry Data The oxygen desaturation index (STEPHEN 4%:) is 42.7. The mean saturation is 94%, and the lowest saturation is 81%. Time spent with saturation < 88% is 0.3 minutes. Snoring Profile Snoring average intensity is 41 dB. The patient snored above 45 decibels for 42.4 minutes, 9.5% of sleep time. Cardiac Profile The average pulse rate is 69 beats per minutes. The lowest pulse rate is 48 bpm. The highest pulse rate reported is 101 bpm. Suspected Afib total duration is 0:00:54, (h:m:sec). The longest Afibevent duration is 0:00:54. A suspected arrhythmia flagged in the sleep report does not necessarily imply an arrhythmia condition is present, but rather suggests that further investigation should be considered. A-Fib events < 60 seconds may be artifact. Premature beats occur <0.1 per minute. Assessment and Plan Assessment and Plan (1) MATEO (obstructive sleep apnea): Code(s): G47.33 - Obstructive sleep apnea (adult) (pediatric) Status: Acute Assessment and Plan: The patient had an overall AHI of 32.3 (4% criteria) with desaturation down to 81%. This is consistent with severe sleep apnea. The patient had an overall AHI of 44.7 (3% criteria). The patient had a central apnea index of 19.6 (3% criteria), which is abnormal (normal < 5). Due to the severity of the patient's sleep apnea and the elevated central apnea index, the patient is not a candidate for AutoPAP. AutoPAP can increase the severity and frequency of central apneas. I recommend that the patient have a CPAP titration study with the use of a hypnotic to ensure we obtain enough sleep data and find an optimal pressure. *The patient needs to have an echocardiogram done to rule out cardiogenic causes for an elevated central apnea index.* (2) Restless leg syndrome: Code(s): G25.81 - Restless legs syndrome Status: Acute Assessment and Plan: The patient has been previously diagnosed with Restless Legs Syndrome. She had a serum ferritin done in August 2023 that was 27. I recommend starting a daily iron supplement and a Vitamin C supplement for better absorption until her serum ferritin is greater than 75 ng/mL. Depending on severity, I recommend starting a dopamine agonist and titrating the dose until symptoms resolve while continuing to treat her iron deficiency anemia. There are nonpharmacological methods to treat limb movements including daily exercise, stretching calf muscles before bed, avoiding excessive amounts of caffeine and alcohol, vitamin B supplementation, magnesium lotion massaged into legs before bed, and use of a weighted blanket. Data The data obtained during this sleep study is adequate for interpretation. Certification This sleep study has been reviewed by a board certified sleep medicine physician.
== END 2024-05-30 12:30 | disposition home or self-care (01) ==
LOC: ANHCSM 08:37
PROVIDERS: PCP Family Medicine; Visit Provider Family Medicine
DX: G47.30 Sleep apnea, unspecified (principal); G47.10 Hypersomnia, unspecified; E66.9 Obesity, unspecified; G47.33 Obstructive sleep apnea (adult) (pediatric); G25.81 Restless legs syndrome
CPT/HCPCS: 95800

== ENCOUNTER 2024-06-20 13:25 | Outpatient (CLI) | payer BC, SELFPAY | END 2024-06-20 13:26 | disposition home or self-care (01) | LOC: ANHGOSHLAB 13:27 | PROVIDERS: PCP Family Medicine; Visit Provider Family Medicine | DX: G25.81 Restless legs syndrome (principal) | CPT/HCPCS: 36415; 82728 ==

== ENCOUNTER 2024-06-24 07:53 | Outpatient (CLI) | payer OTHER, BC, SELFPAY | END 2024-06-25 05:59 | disposition home or self-care (01) | LOC: ANHCSM 07:53 | PROVIDERS: PCP Family Medicine; Visit Provider Family Medicine | DX: G47.33 Obstructive sleep apnea (adult) (pediatric) (principal); G47.31 Primary central sleep apnea | CPT/HCPCS: 95811 ==

== ENCOUNTER 2024-07-17 13:45 | Outpatient (CLI) | payer BC, SELFPAY ==
--- NOTE | 2024-07-17 14:24 | ECHO_ITS ---
Patient Info Name: Lina Beth Age: 53 years : 1970 Gender: Female Ht: 69 in Wt: 200 lbs BSA: 2.12 m2 HR: 61 bpm BP: 127 / 77 mmHg Technical Quality: Fair Exam Date: 07/17/2024 2:30 PM Exam Location: Echo Lab Patient Status: Outpatient Admit Date: 07/17/2024 Staff Ordering Physician: Susanna Engle MD Arrt Technologist: Noemi Viera RDCS Attending Provider: Susanna Engle MD Referring Physician: Oniel SIMMONS; Exam Type: CA echo doppler color flow Study Info Indications - G47.31 Primary central sleep apnea Complete two-dimensional, color flow and Doppler transthoracic echocardiogram is performed. Summary 1. Complete two-dimensional, color flow and Doppler transthoracic echocardiogram is performed. 2. Left ventricular chamber dimension is normal. 3. Left ventricular systolic function is normal, estimated at 60-65%. 4. The left ventricular diastolic function is normal. 5. E/e' 7 is not elevated. 6. Left atrial chamber dimension is moderately enlarged. 7. There is mild tricuspid valve regurgitation. 8. No pulmonary hypertension, estimated pulmonary arterial systolic pressure is 35 mmHg. 9. Dilated inferior vena cava with >50% collapse upon inspiration consistent with elevated right atrial pressure, 10 mmHg. Left Ventricle E/e' 7 is not elevated. Left ventricular chamber dimension is normal. Left ventricular systolic function is normal, estimated at 60-65%. The left ventricular diastolic function is normal. Right Ventricle Right ventricular systolic function is normal and with normal TAPSE 2.7 cm. Right ventricular chamber dimension is normal. Left Atria Left atrial chamber dimension is moderately enlarged. Right Atria Right atrial chamber dimension is normal. Aortic Valve The aortic valve is trileaflet. There is no aortic valve stenosis. There is no aortic valve regurgitation. Pulmonic Valve There is no pulmonic regurgitation. Mitral Valve There is no mitral valve stenosis. There is no mitral valve regurgitation. Tricuspid Valve There is mild tricuspid valve regurgitation. No pulmonary hypertension, estimated pulmonary arterial systolic pressure is 35 mmHg. Pericardium/Pleural There is no pericardial effusion. Inferior Vena Cava Dilated inferior vena cava with >50% collapse upon inspiration consistent with elevated right atrial pressure, 10 mmHg. Aorta The aortic root size at the sinus of Valsalva is normal. Left Ventricular Outflow Tract Name Value Normal LVOT 2D LVOT Diameter 1.9 cm LVOT Doppler LVOT Peak Gradient 7 mmHg LVOT Mean Gradient 3 mmHg LVOT VTI 27 cm LVOT VTI/AV VTI Ratio 0.9 LVOT Stroke Volume 74 ml LVOT CO 4.2 l/min LVOT CI 2.0 l/min/m2 Pulmonic Valve Name Value Normal PV Doppler PV Peak Gradient 3 mmHg Mitral Valve Name Value Normal MV Doppler MV Decel [place] 368 cm/s2 MV PHT 67 ms MV Area (PHT) 3.3 cm2 4.0-5.0 MV Diastolic Function MV E Peak Velocity 85 cm/s MV A Peak Velocity 79 cm/s MV E/A 1.1 MV Decel Time 230 ms Tricuspid Valve Name Value Normal TV Regurgitation Doppler TR Peak Velocity 250 cm/s TR Peak Gradient 20 mmHg Estimated PAP/RSVP RA Pressure 10 mmHg <=5 PA Systolic Pressure 35 mmHg <36 RV Systolic Pressure 35 mmHg <36 Aorta Name Value Normal Ascending Aorta Ao Root Diameter (MM) 1.9 cm Ao Root Diam Index (MM) 0.9 cm/m2 Aortic Valve Name Value Normal AV Doppler AV Peak Velocity 141 cm/s AV Peak Gradient 8 mmHg AV Mean Gradient 4 mmHg AV VTI 29 cm AV Area (Cont Eq VTI) 2.6 cm2 >=3.0 AV Area (Cont Eq Tye) 2.6 cm2 AV Regurgitation 2D LVOT Area 2.8 cm2 Ventricles Name Value Normal LV Dimensions 2D/MM IVS Diastolic Thickness (2D) 0.7 cm 0.6-1.0 IVS Diastole Thickness (MM) 0.7 cm 0.6-0.9 LVID Diastole (2D) 4.7 cm 3.8-5.2 LVID Diastole (MM) 4.6 cm 3.8-5.2 LVIW Diastolic Thickness (2D) 0.9 cm 0.6-0.9 LVIW Diastolic Thickness (MM) 0.7 cm 0.6-0.9 LVID Systole (2D) 3.2 cm 2.2-3.5 LVID Systole (MM) 3.1 cm 2.2-3.5 LVOT Diameter 1.9 cm LV Mass (2D Cubed) 118.37 g 67.00-162.00 LV Mass Index (2D Cubed) 56 g/m2 43-95 Relative Wall Thickness (2D) 0.37 LV Mass (MM Cubed) 95.76 g 67.00-162.00 LV Mass Index (MM Cubed) 45 g/m2 43-95 Relative Wall Thickness (MM) 0.30 LV Fractional Shortening/Ejection Fraction 2D/MM LV Fractional Shortening (2D) 32 % 27-45 LV Fractional Shortening (MM) 32 % 27-45 LV EF (MM Teicholz) 61 % 54-74 LV EF (2D Teicholz) 60 % 54-74 LV Diastolic Volume (4C MOD) 92 ml LV EF (4C MOD) 62 % LV Diastolic Volume (2C MOD) 107 ml LV EF (2C MOD) 65 % LV Diastolic Volume (BP MOD) 100 ml 46-106 LV Diastolic Volume Index (BP MOD) 47 ml/m2 29-61 LV Systolic Volume (BP MOD) 37 ml 14-42 LV Systolic Volume Index (BP MOD) 18 ml/m2 8-24 LV EF (BP MOD) 63 % 54-74 LV Diastolic Length (4C) 8.5 cm LV Systolic Length (4C) 7.0 cm LV Stroke Volume (4C MOD) 57 ml Atria Name Value Normal LA Dimensions LA Dimension (MM) 4.1 cm 2.7-3.8 LA Volume (4C A-L) 57 ml LA Volume (BP A-L) 59 ml RA Dimensions RA Area (4C) 16.7 cm2 <=18.0 Report Signatures
== END 2024-07-17 13:46 | disposition home or self-care (01) ==
PROVIDERS: PCP Family Medicine; Visit Provider Family Medicine
DX: G47.31 Primary central sleep apnea (principal); I36.1 Nonrheumatic tricuspid (valve) insufficiency
CPT/HCPCS: 93306

== ENCOUNTER 2024-11-18 13:47 | Outpatient (CLI) | payer OTHER, SELFPAY ==
--- NOTE | ~2024-11-18 | XR_ITS ---
Cervical Spine: AP, lateral, open-mouth views Clinical History: Anesthesia scan Findings: There is minimal reversal of the normal cervical lordosis. No fracture or subluxation seen. There is mild degenerative disc narrowing at C5-C6. There is moderate degenerative disc narrowing at C6-C7. There is no instability on flexion or extension. There is mild facet arthropathy. Pre-vertebr al soft tissues are unremarkable. Impression: Mild degenerative spondylosis overall, as above. Reviewed, dictated and finalized at location M. Impression: Mild degenerative spondylosis overall, as above.
== END 2024-11-18 13:48 | disposition home or self-care (01) ==
LOC: GOSHIMG 13:51
PROVIDERS: Visit Provider Family Medicine
DX: R20.0 Anesthesia of skin (principal); M47.892 Other spondylosis, cervical region
CPT/HCPCS: 72050

== ENCOUNTER 2024-11-19 08:08 | Outpatient (CLI) | payer OTHER, BC, SELFPAY ==
--- OUTSIDE RECORDS SUMMARY | 2024-11-19 08:18 | XMS_ITS | Clinical Summary ---
Author Organization [facility] Address [address] [place] [address] Phone Care Team Providers Care Sheet Metal Lay Out Worker Name Role Phone Susanna Engle MD Primary Care Provider +1- [phone] Medications No known medications Family History Medical History Relation Name Comments Cancer Father Healthy Mother Relation Name Status Comments Father Mother Social History Tobacco Use Types Packs/Day Years Used Date Smoking Tobacco: Never Assessed Comments Unknown Sex and Gender Information Value Date Recorded Sex Assigned at Not on file Legal Sex Female 6:08 AM FLEXOGRAPHIC PRESS SET UP OPERATOR Gender Identity Not on file Sexual Orientation Not on file Last Filed Vital Signs Vital Sign Reading Time Taken Comments Blood Pressure 105/54 11/21/2011 11:32 AM CDT Pulse 54 11/21/2011 11:32 AM CDT Temperature 36.3 C (97.4 F) 11/21/2011 11:29 AM CDT Respiratory Rate 20 11/21/2011 11:32 AM CDT Oxygen Saturation 100% 11/21/2011 11:32 AM CDT Inhaled Oxygen Concentration - - Weight 83.9 kg (185 lb) 11/21/2011 9:20 AM CDT Height 175.3 cm (5' 9 ) 11/21/2011 9:20 AM CDT Body Mass Index 27.32 11/21/2011 9:20 AM CDT Plan of Treatment Health Maintenance Due Date Last Done Comments DTAP/TDAP/TD VACCINES (1 - Tdap) 1988 HEPATITIS B VACCINES (1 of 3 - 19+ 3-dose series) 1988 HPV/Cotest (21-29) 1990 PAP SMEAR 1990 CERVICAL CANCER SCREENING 11/03/1999 HPV/Cotest (30-65) 11/03/1999 PAP SMEAR 11/03/1999 BREAST CANCER SCREENING 2009 FIT-DNA Q 3 years 2014 FIT/FOBT Q 1 year 2014 Flex Sig/CT Colonography Q 5 years 2014 ZOSTER VACCINE (1 of 2) 11/03/2019 COLORECTAL SCREENING 11/20/2021 11/21/2011 Colorectal Cancer Screening 11/20/2021 INFLUENZA VACCINE (#1) 2024 PNEUMOCOCCAL VACCINE 0-49 YEARS Aged Out No longer eligible based on patient's age [place] [address] U-NOTE [facility] OPEN ACCESS Advance Directives For more information, please contact: [phone] * Full Code (Latest Code Status on File) Date Activated Date Inactivated Comments 11/21/2011 9:13 AM 11/22/2011 2:01 AM Care Teams Sheet Metal Lay Out Worker Relationship Specialty Start Date End Date Susanna Engle MD PCP - General Family Practice 07/26/21
--- OUTSIDE RECORDS SUMMARY | 2024-11-19 08:18 | XMS_ITS | Clinical Summary ---
Author Organization [facility] Main [place] Address [address] [place] [address] Care Team Providers Care Utility Locate Technician Name Role Phone Susanna Engle MD Primary Care Provider + Allergies Active Allergy Reactions Criticality Noted Date Comments Nitrofurantoin Medications DULoxetine DR (CYMBALTA) 30 mg capsule 07/13/2021 Active fluticasone prp-sod.chl,bic arb 50 mcg- 0.9 % kit,spray suspension and spray 09/13/2015 Active tiZANidine (ZANAFLEX) 4 mg tablet 07/12/2021 Active atorvastatin (LIPITOR) 20 mg tablet Take 1 tablet (20 mg total) by mouth nightly 09/24/2023 Active metFORMIN XR (GLUCOPHAGE XR) 500 mg 24 hr tablet Take 2 tablets (1,000 mg total) by mouth 2 (two) times a day 10/10/2023 Active Active Problems Problem Noted Date Diagnosed Date Cervical radiculopathy 11/01/2023 Ulnar neuritis, right 11/01/2023 Cervical spondylosis without myelopathy 11/01/19 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/01/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 Fatigue 03/14/2013 Chest pain 03/14/2013 Shortness of breath 03/14/2013 Heartburn 03/14/2013 Endometriosis 03/14/2013 Chronic pain 03/14/2013 Pain in extremity 03/14/2013 Peripheral nerve disease 03/14/2013 Immunizations Immunization Administration Dates Next Due Influenza, Quadrivalent, Kaylah l Culture-based MDCK, Antibiotic Free, Intramuscular 05/19/2020 Surgical History Surgery Date Site/Laterality Comments LAPAROSCOPY 08/13/1999 - 08/12/2000 endometriosis COMBINED HYSTEROSCOPY DIAGNOSTIC / D&C 07/31/2014 path: ecc- benign; emc-polypoid tissue Family History Medical History Relation Name Comments Arthritis Father Yordan Dementia Father Yordan Memory loss Father Yordan Arthritis Maternal Grandfather Murphy Cancer Maternal Grandfather Murphy Arthritis Maternal Grandmother Xochitl Diabetes Maternal Grandmother Xochitl Heart disease Maternal Grandmother Xochitl Hypertension Maternal Grandmother Xochitl Arthritis Mother Marga Atrial fibrillation Mother Marga Hearing loss Mother Marga Heart disease Mother Marga Obesity Mother Marga Alzheimer's disease Paternal Grandfather Artemio Arthritis Paternal Grandfather Artemio Memory loss Paternal Grandfather Artemio Arthritis Paternal Grandmother Pansey Endometriosis Paternal Grandmother Ema Kidney cancer Paternal Grandmother Ema Osteoporosis Paternal Grandmother Ema Relation Name Status Comments Father Yordan Maternal Grandfather Murphy Maternal Grandmother Xochitl Mother Marga Paternal Grandfather Artemio Paternal Grandmother Ema Social History Tobacco Use Types Packs/Day Years Used Date Smoking Tobacco: Never Smokeless Tobacco: Never Tobacco Cessation:Counseling Given: Not Answered Alcohol Use Standard Drinks/Week Comments Not Currently 1 (1 standard drink = 0.6 oz pure alcohol) Increases hot flashes, not typically drinking alcohol Comments No Sex and Gender Information Value Date Recorded Sex Assigned at Not on file Legal Sex Female 9:35 AM CAR 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 Gender Identity Not on file Sexual Orientation Not on file Obstetrics History Last Filed Vital Signs Vital Sign Reading Time Taken Comments Blood Pressure 127/83 10/30/2023 2:10 PM CDT Pulse 69 10/30/2023 2:10 PM CDT Temperature 37.1 C (98.7 F) 02/19/2020 8:32 AM CDT Respiratory Rate - - Oxygen Saturation 100% 10/30/2023 2:10 PM CDT Inhaled Oxygen Concentration - - Weight 115.1 kg (253 lb 11.2 oz) 10/30/2023 2:10 PM CDT Height 172.7 cm (5' 7.99 ) 10/30/2023 2:10 PM CD T Body Mass Index 38.58 10/30/2023 2:10 PM CDT Plan of Treatment Health Maintenance Due Date Last Done Comments Breast Cancer Screening-Mammogram 1969 Colon Cancer Screening-Colonoscopy 1969 Depression Screening 1969 Hepatitis C Screening 1969 Hepatitis B Screening 11/03/1987 Zoster Vaccine (1 of 2) 11/03/2019 Cervical Cancer Screening 07/28/2022 07/28/2021 Regular Well Visit/Exam 18-64 07/28/2022, 02/19/2020 Influenza Vaccine (Season Ended) 2025 04/19/2022, 05/19/2020 DTaP/Tdap/Td Vaccine (2 - Td or Tdap) 10/12/2031 10/11/2021 Pneumococcal vaccine <65 Aged Out No longer eligible based on patient's age to complete this topic Procedures Procedure Name Priority Date/Time Associated Diagnosis Comments PAP AND HIGH RISK HPV, REFLEX TO GENOTYPING Routine 07/28/2021 4:32 PM CAR 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 Routine gynecological examination from Last 3 Months or Most Recently Relevant to Health Maintenance Results * Pap and High Risk HPV, reflex to Genotyping (07/28/2021 4:32 PM CAR 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) Swab (Pap test) 07/28/2021 4 :32 PM CAR 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 07/31/2021 9:31 AM CAR 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 Narrative PATHOLOGY [facility] - 08/03/2021 8:46 AM CAR 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 EPIC results best viewed via link to PDF [address] [address] Tele: Sarita Alvarado MD - Proof Machine Operator Supervisor CYTOLOGY REPORT Note to Patients: This report may contain a detailed description of human tissue sent by a health care provider to the laboratory for pathologic evaluation. The content of this report is essential for diagnosis and may provide important critical findings. This information may be unfamiliar to patients to review without a medical professional present. It is advised that the patient review this report in the presence of a health care provider who can answer questions and explain the details. Patient Name: LINA BURCIAGA Address: [address] [place] [address] [place] [address] Gender: F : 1970 (Age: 50) Service: Location: [facility] #: [id number] Patient [place] [facility] [place] Taken: 07/28/2021 Reported: 08/03/2021 Physician(s): Susanna Burton M.D. FINAL DIAGNOSIS: Specimen Type: - ThinPrep Pap and HPV w/ reflex Genotyping Statement of Specimen Adequacy: Source: Cervical/Endocervical - Satisfactory for interpretation - Endocervical /Transformation Zone component present - Case screened using computer assisted imaging technology General Categorization: - Negative for intraepithelial lesion or malignancy snx/08/03/2021 08:46 CONNIE No (ASCP) Report Reviewed and Electronically Signed By CONNIE No (ASCP) Clerical Data Follow A; G0145 DIAGNOSIS COMMENT: Ancillary Testing: HPV High Risk Group (16, 18, 31, 33, 35, 39, 45, 51, 52, 56, 58, 59, 66 and 68) - Not Detected Reference Range: Not Detected This test was performed using the NOHEMY 4800 CLINICAL DIAGNOSIS AND HISTORY Menstrual History: Menopausal REPORT IMAGES AND/OR SCANNED DOCUMENTS ONLY VIEWABLE IN PDF FORMAT The Pap test is a screening test used to aid in the detection of cervical cancer and its precursors. It should not be the sole means by which malignant and premalignant lesions are diagnosed. Both false negative and false positive results may occur. It also has poor sensitivity for the detection of endometrial lesions and should not be used to evaluate suspected endometrial abnormalities. For these reasons it is most important to obtain Pap tests at regular intervals, as recommended by your physician or nurse practitioner. Susanna Burton MD LAB CYTOLOGY ORDERABLES F inal Result PATHOLOGY [facility] Laboratory Receiving [address] [place] [address] from Last 3 Months or Most Recently Relevant to Health Maintenance Insurance [facility] [employer] [place] [employer] [facility] [id number] [employer] [facility] [id number] Care Teams Utility Locate Technician Relationship Specialty Start Date End Date Susanna Engle MD PCP - General 12/14/16
--- OUTSIDE RECORDS SUMMARY | 2024-11-19 08:18 | XMS_ITS | Referral Summary ---
Author Organization [facility] Main [place] Address [address] [place] [address] Care Team Providers Care Plate Painter Name Role Phone Susanna Engle MD Primary [...] l Culture-based MDCK, Antibiotic Free, Intramuscular 05/19/2020 Social History Tobacco Use Types Packs/Day Years Used Date Smoking Tobacco: Never Smokeless Tobacco: Never Tobacco Cessation:Counseling Given: Not Answered Alcohol Use Standard Drinks/Week Comments Not Currently 1 (1 standard drink = 0.6 oz pure alcohol) Increases hot flashes, not typically drinking alcohol Comments No Sex and Gender Information Value Date Recorded Sex Assigned at Not on file Legal Sex Female 9:35 AM SHAKER TENDER Gender Identity Not on file Sexual Orientation [...] 10/30/2023 2:10 PM CDT Plan of Treatment Not on file Procedures Procedure Name Priority Date/Time Associated Diagnosis Comments PAP AND HIGH RISK HPV, REFLEX TO GENOTYPING Routine 07/28/2021 4:32 PM SHAKER TENDER Routine gynecological examination from Last 3 Months or Most Recently Relevant to Health Maintenance Results * Pap and High Risk HPV, reflex to Genotyping (07/28/2021 4:32 PM SHAKER TENDER) Swab (Pap test) 07/28/2021 4 :32 PM SHAKER TENDER 07/31/2021 9:31 AM SHAKER TENDER Narrative PATHOLOGY [facility] - 08/03/2021 8:46 AM SHAKER TENDER [facility] results best viewed via link to PDF [address] [address] Tele: Sarita Alvarado MD - Microstrategy Reports Developer CYTOLOGY REPORT Note to Patients: This report [...] questions and explain the details. Patient Name: EL BURCIAGA Address: [address] [place] [address] Gender: F : 1970 (Age: 50) Service: Location: [facility] #: [id number] Patient Type: [facility] [place] SPECIMEN Taken: 07/28/2021 Reported: 08/03/2021 Physician(s): Susanna [...] recommended by your physician or nurse practitioner. us Susanna Burton MD LAB CYTOLOGY ORDERABLES F inal Result PATHOLOGY [facility] Laboratory Receiving [address] [place] [address] from Last 3 Months or Most Recently Relevant to Health Maintenance Insurance [facility] [place] [facility] [id number] BLUE [facility] [id number] Care Teams Plate Painter Relationship Specialty Start Date End Date Susanna Engle MD PCP - General 12/14/16
[2024-11-19 11:26] LABS: Basophils Percent Auto 0.5 % (0.2-1.2); Eosinophils Absolute Auto 0.3 K/mm3 (0-0.3); Eosinophils Percent Auto 3.8 % (0-4.4); Hematocrit 44.3 % (37.0-47.0); Hemoglobin 14.1 g/dL (12.0-15.0); Immature Granulocyte Absolute 0.02 K/mm3 (0.00-0.031); Immature Granulocyte Percent A 0.3 % (0-0.5); Lymphocytes Absolute Auto 2.04 K/mm3 (0.9-3.2); Lymphocytes Percent Auto 31.1 % (18.3-44.2); Mean Corpuscular HGB Conc 31.8 g/dl (32-36); Mean Corpuscular Hemoglobin 30.1 pg (26-34); Mean Corpuscular Volume 94.7 fl (80-100); Mean Platelet Volume 10.9 fl (7.4-10.4); Monocytes Absolute Auto 0.4 K/mm3 (0.1-0.6); Monocytes Percent Auto 5.8 % (2.6-8.5); Neutrophils Absolute Auto 3.8 K/mm3 (1.3-6.7); Neutrophils Percent Auto 58.5 % (45.5-73.1); Platelet Count Result 326 k/mm3 (150-375); Red Blood Count 4.68 M/mm3 (4.2-5.4); Red Cell Distribution Width 12.4 % (11.5-14.5); White Blood Count 6.6 K/mm3 (4.5-10.0)
[2024-11-19 12:46] LABS: Hemoglobin A1C 5.4 % (<5.7)
[2024-11-19 13:42] LABS: Alanine Aminotransferase 36 U/L (6-35); Albumin Level 4.7 g/dL (3.5-5.1); Alkaline Phosphatase 104 U/L (38-126); Anion Gap 12 mmol/L (4-12); Aspartate Amino Transferase 34 U/L (14-36); Bilirubin,Total 0.4 mg/dL (0.2-1.3); Blood Urea Nitrogen 25 mg/dL (7-17); Calcium 9.3 mg/dL (8.4-10.2); Carbon Dioxide 24 mmol/L (22-30); Chloride 106 mmol/L (98-107); Cholesterol 156 mg/dL (0-200); Estimated Glomerular Filt Rate > 60; Glucose 88 mg/dL (65-110); HDL Direct 56 mg/dL; Potassium 4.9 mmol/L (3.4-5.0); Sodium 142 mmol/L (137-145); Triglycerides 54 mg/dL (<150)
[2024-11-19 13:52] LABS: LDL Cholesterol Direct 74 mg/dL
[2024-11-21 14:47] LABS: Immunoglobulin A 149 mg/dL (47-310); TTG IGA AB <1.0 U/mL
== END 2024-11-19 08:09 | disposition home or self-care (01) ==
LOC: ANHGOSHLAB 08:10
PROVIDERS: PCP Family Medicine; Visit Provider Family Medicine
DX: R79.0 Abnormal level of blood mineral (principal); R73.03 Prediabetes; R53.83 Other fatigue; E78.2 Mixed hyperlipidemia
CPT/HCPCS: 36415; 80053; 80061; 82728; 82784; 83036; 83516; 84443; 85025

== ENCOUNTER 2024-12-10 08:25 | Outpatient (CLI) | payer OTHER, BC, SELFPAY ==
--- NOTE | 2024-12-10 08:32 | ECG_ITS ---
Test Date: 2024-12-10 08:55:27 Measurements Intervals [place] Rate: 61 P: 23 [place]: 157 QRS: 72 QRSD: 107 T: 50 QT: 394 QTc: 398 Interpretive Statements SINUS RHYTHM INCOMPLETE RIGHT BUNDLE BRANCH BLOCK DELAYED PRECORDIAL R/S TRANSITION BORDERLINE ECG No previous ECG available for comparison Electronically Signed On 12-10-2024 09:17:01 CDT by Tomer Bush D.O.
--- OUTSIDE RECORDS SUMMARY | 2024-12-10 08:42 | XMS_ITS | Clinical Summary ---
Author Organization [facility] Address [address] [place] [address] Phone Care Team Providers Care Clinical Biostatistics Director Name Role Phone Susanna Engle MD Primary Care Provider +1- [phone] Medications No known medications Family History Medical History Relation Name Comments Cancer Father Healthy Mother Relation Name Status Comments Father Mother Social History Tobacco Use Types Packs/Day Years Used Date Smoking Tobacco: Never Assessed Comments Unknown Sex and Gender Information Value Date Recorded Sex Assigned at Not on file Legal Sex Female 6:08 AM PEDIATRIC ONCOLOGIST Gender Identity Not on file Sexual Orientation [...] (1 of 3 - 19+ 3-dose series) 10/12 HPV/Cotest (21-29) 1990 CERVICAL CANCER SCREENING 11/03/1999 HPV/Cotest (30-65) 11/03/1999 PAP SMEAR 11/03/1999 BREAST CANCER SCREENING 2009 FIT-DNA Q 3 years 2014 FIT/FOBT Q 1 year 2014 Flex Sig/CT Colonography Q 5 years 2014 ZOSTER VACCINE (1 of 2) 11/03/2019 COLORECTAL SCREENING 11/20/2021 11/21/2011 Colorectal Cancer Screening 11/20/2021 INFLUENZA VACCINE (#1) 2024 [place] [address] [employer] OPEN ACCESS Advance Directives For more information, please contact: [phone] * Full Code (Latest Code Status on File) Date Activated Date Inactivated Comments 11/21/2011 9:13 AM 11/22/2011 2:01 AM Care Teams Clinical Biostatistics Director Relationship Specialty Start Date End Date Susanna Engle MD PCP - General Family Practice 07/26/21
--- OUTSIDE RECORDS SUMMARY | 2024-12-10 08:42 | XMS_ITS | Referral Summary ---
Author Organization [facility] Main [place] Address [address] [place] [address] Care Team Providers Care Sleeve Setter Safety Stitch Name Role Phone Susanna Engle MD Primary [...] on file Legal Sex Female 9:35 AM RADIAGRAPH OPERATOR Gender Identity Not on file Sexual [...] REFLEX TO GENOTYPING Routine 07/28/2021 4:32 PM RADIAGRAPH OPERATOR Routine gynecological examination from Last 3 Months or Most Recently Relevant to Health Maintenance Results * Pap and High Risk HPV, reflex to Genotyping (07/28/2021 4:32 PM RADIAGRAPH OPERATOR) Swab (Pap test) 07/28/2021 4 :32 PM RADIAGRAPH OPERATOR 07/31/2021 9:31 AM RADIAGRAPH OPERATOR Narrative PATHOLOGY [facility] - 08/03/2021 8:46 AM RADIAGRAPH OPERATOR [facility] results best viewed via link to PDF [address] [address] Tele: Sarita Alvarado MD - Roughing Mill Operator CYTOLOGY REPORT Note to Patients: This report [...] the details. Patient Name: EL BURCIAGA Address: [address] [place] [address] Gender: F : 1970 (Age: 50) Service: Location: [facility] #: [id number] Patient Type: [facility] [place] Taken: 07/28/2021 Reported: 08/03/2021 Physician(s): Susanna [...] LAB CYTOLOGY ORDERABLES F inal Result PATHOLOGY [facility] Laboratory Receiving [address] [place] [address] from Last 3 Months or Most Recently Relevant to Health Maintenance [facility] [id number] BLUE [facility] [id number] Care Teams Sleeve Setter Safety Stitch Relationship Specialty Start Date End Date Susanna Engle MD PCP - General 12/14/16
--- OUTSIDE RECORDS SUMMARY | 2024-12-10 08:42 | XMS_ITS | Clinical Summary ---
Author Organization [facility] Main [place] Address [address] [place] [address] Care Team Providers Care Office Rep Name Role Phone Susanna Engle MD Primary [...] Cancer Maternal Grandfather Murphy Arthritis Maternal Grandmother Xochilt Diabetes Maternal Grandmother Xochitl Heart disease Maternal Grandmother Xochitl Hypertension Maternal Grandmother Xochitl Arthritis Mother Marga Atrial fibrillation Mother Marga Hearing loss Mother Marga Heart disease Mother Marga Obesity Mother Marga Alzheimer's disease Paternal Grandfather Artemio Arthritis Paternal Grandfather Artemio Memory loss Paternal Grandfather Artemio Arthritis Paternal Grandmother Ema Endometriosis Paternal Grandmother Ema Kidney cancer Paternal Grandmother Ema Osteoporosis Paternal Grandmother Ema Relation Name Status Comments Father Yordan Maternal Grandfather Murphy Maternal Grandmother Xochitl Mother Marga Paternal Grandfather Artemio Paternal Grandmother Logan Social History Tobacco Use Types Packs/Day Years Used Date Smoking Tobacco: Never Smokeless Tobacco: Never Tobacco Cessation:Counseling Given: Not Answered Alcohol Use Standard Drinks/Week Comments Not Currently 1 (1 standard drink = 0.6 oz pure alcohol) Increases hot flashes, not typically drinking alcohol Comments No Sex and Gender Information Value Date Recorded Sex Assigned at Not on file Legal Sex Female 9:35 AM UX DESIGN LEAD Gender Identity Not on file Sexual Orientation [...] REFLEX TO GENOTYPING Routine 07/28/2021 4:32 PM UX DESIGN LEAD Routine gynecological examination from Last 3 Months or Most Recently Relevant to Health Maintenance Results * Pap and High Risk HPV, reflex to Genotyping (07/28/2021 4:32 PM UX DESIGN LEAD) Swab (Pap test) 07/28/2021 4 :32 PM UX DESIGN LEAD 07/31/2021 9:31 AM UX DESIGN LEAD Narrative PATHOLOGY [facility] - 08/03/2021 8:46 AM UX DESIGN LEAD EPIC results best viewed via link to PDF [address] [address] Tele: Sarita Alvarado MD - Senior Analysis Specialist CYTOLOGY REPORT Note to Patients: This report [...] the details. Patient Name: LINA BURCIAGA Address: [address] [place] [address] [place] [address] Gender: F : 1970 (Age: 50) Service: Location: [facility] #: [id number] Patient Type: [facility] SPECIMEN Taken: 07/28/2021 Reported: 08/03/2021 Physician(s): Susanna [...] ORDERABLES F inal Result PATHOLOGY [facility] Laboratory Re[address] [place] [address] from Last 3 Months or Most Recently Relevant to Health Maintenance [facility] [place] [employer] [facility] [id number] [place] [facility] [id number] Care Teams Office Rep Relationship Specialty Start Date End Date Susanna Engle MD PCP - General 12/14/16
== END 2024-12-10 08:26 | disposition home or self-care (01) ==
LOC: ANHSURGERY 08:30
PROVIDERS: PCP Family Medicine; Visit Provider Orthopaedic Surgery
DX: E78.2 Mixed hyperlipidemia (principal); Z01.818 Encounter for other preprocedural examination; I45.10 Unspecified right bundle-branch block
CPT/HCPCS: 93005

== ENCOUNTER 2024-12-18 01:25 | Day surgery (SDC) | payer OTHER, BC, SELFPAY ==
[2024-12-08 14:02] VITALS: BMI 34.0
--- NOTE | 2024-12-08 14:03 | PC.NURSE ---
Report to the Outpatient Waiting Room, entrance under the green pavilion located off [facility], at time _1000_ on date _[id number]_. Planned Procedure Time: _1200_.? Time changes happen often and if your time is changed the preop area will call you the afternoon before. - You and your visitor will be asked to self-screen and do not enter if you have any COVID symptoms. Please call surgeon if you need to reschedule. - A mask is optional within the hospital at this time. Patients may have clear liquids (water, carbonated beverages, clear teas, apple juice) until 3 hours prior to surgery with a maximum of 20 ounces. - No food from midnight until time of surgery and no smoking, or chewing tobacco (or any form of nicotine). No chewing gum, candy or mints. Take only the following medications with a SIP of water on the morning of surgery: __Flonase___ DO NOT STOP ANY OF YOUR OTHER PRESCRIPTION MEDICATIONS PRIOR TO SURGERY EXCEPT THE FOLLOWING Hold all vitamins and supplements for 3 days per anesthesiologist. Medications to discontinue per physician ___Meloxicam___ Date to take last fnna___[phone]___ Please no make-up, nail irish, hairspray, perfume, deodorant, or body powder the day of surgery.? No jewelry (including any body piercings) or valuables the day of surgery, leave them at home.? Please take a shower or bath the night before, or the morning of, surgery with an antibacterial soap.? Wear comfortable, loose fitting clothing. - Jewelry must be removed prior to entering the operating room.? Rings and piercings that are not removed may be cut off. - The hospital will not accept responsibility for valuables.? - Please leave all valuables, including medications, at home the day of surgery. If you are going home after surgery, a licensed pharmacy delivery driver must drive you home.? - NO public transportation without another adult if you receive anesthesia. - We recommend that an adult stay with you for 24 hours following discharge. - We also recommend that you do not drive, make important decision, drink alcoholic beverages, or take any drugs that were not prescribed by your health care provider for at least 24 hours after your discharge time. Follow any additional instructions given to you from your surgeon. Telephone instructions given to __Kate__and asked if any additional questions and then verbalized understanding. Patient advised to call surgeon office or pre surgery nurse liaison [phone] if any additional questions.
--- NOTE | 2024-12-17 13:57 | PM.IMHP ---
H&P: HPI History of Present Illness Date/Time: 12/17/24 13:57 Chief Complaint: Right heel pain Narrative: 54-year-old woman with recalcitrant right heel pain on the plantar aspect. Unrelieved with physical therapy, stretching, cortisone injection, inserts and activity modification. Continues to have daily pain with any weight-bearing, worse in the morning. Better when she is off of her foot. Review of Systems Constitutional: Constitutional: Denies fever(s) Eyes: Eyes: Denies blurry vision ENT: Reports Normal hearing present Cardiovascular: Cardiovascular: Denies chest pain and Denies dyspnea Respiratory: Respiratory: Denies dyspnea and Denies wheezing Gastrointestinal: Gastrointestinal: Denies abdominal pain Genitourinary: Genitourinary: Denies urinary urgency Musculoskeletal: Musculoskeletal: Reports as per HPI and Denies numbness Integumentary/Breasts: Skin/Breast: Denies changing lesions and Denies sores Neurologic: Reports Normal hearing present, Denies behavioral changes, Denies confusion, Denies numbness and Denies convulsions Psychiatric: Psychiatric: Denies behavioral changes, Denies confusion and Denies hallucinations Endocrine: Endocrine: Denies heat intolerance Hematologic/Lymphatic: Hematologic/Lymphatic: Denies easy bleeding Allergic/Immunologic: Allergic/Immunologic: Denies wheezing PMFSH Past Medical History Medical History (Updated 12/17/24 @ 13:58 by Jose Mccartney MD) Intractable right heel pain Plantar fasciitis of right foot Degenerative arthritis of left knee Chondromalacia, left knee Depression Acute medial meniscus tear of left knee Carpal tunnel syndrome, bilateral History of COVID-19 reported by patient 2.[address] cline Foot sprain Surgical History Surgical History S/P left knee arthroscopy H/O arthroscopic knee surgery Right knee arthroscopy by Dr. Mccartney on 02/06/19 Family History Family History Grandparent Hypertension Malignant neoplasm of prostate Family history of malignant neoplasm of urinary bladder Diabetes mellitus Family history of cardiovascular disease Family history of Alzheimer's disease Father Malignant neoplasm of prostate Alzheimer disease Mother Family history of cardiovascular disease A-fib Other Family history of arthritis Family history of elevated blood lipids Social History Social History Smoking status: Never smoker Alcohol intake: never Substance use: never Substance use type: does not use Do You Feel Safe in your Home?: Yes Lack of Transportation: No Lack of Food: Never True Current Housing: I Have Housing Concerned About Future Housing: No Difficulty Paying Gas/Electric Bills: No Difficulty Paying for Meds: No Currently Unemployed: No Education: Bachelor's Degree Difficulty w/ Childcare or Family Care: No Living arrangements: with family Spiritual care concerns: No Meds Home Medications and Allergies Home Medications ?Medication ?Instructions ?Recorded ?Confirmed ?Type fluticasone propionate 50 1 spray intranasal DAILY 07/21/20 12/08/24 History mcg/actuation nasal spray,suspension (Flonase Allergy Relief) multivitamin 1 tablet PO DAILY 05/12/22 12/08/24 History melatonin 10 mg capsule 10 mg PO QHS 04/17/24 12/08/24 History duloxetine 30 mg capsule,delayed 90 mg (3 x 30 mg) PO DAILY #180 05/20/24 12/08/24 Rx release caps tizanidine 4 mg tablet 4 mg PO QHS PRN Sleep #90 tabs 06/05/24 12/08/24 Rx atorvastatin 20 mg tablet 20 mg PO QHS #90 tabs 06/23/24 12/08/24 Rx meloxicam 15 mg tablet 15 mg PO DAILY 11/18/24 12/08/24 History eszopiclone 3 mg tablet (Lunesta) 3 mg PO QHS #1 tablet 11/19/24 12/08/24 Rx pramipexole 0.125 mg tablet 0.125 mg PO .COMPLEX #120 tabs 11/19/24 12/08/24 Rx Allergies Allergy/AdvReac Type Severity Reaction Status Date / Time nitrofurantoin Allergy Unknown MUSCLE AND Verified 12/08/24 13:50 BONE ACHES semaglutide AdvReac Severe constipatio Verified 12/08/24 13:50 n Exam Const: General: healthy appearing; No in distress or confusion Orientation/consciousness: oriented to person, oriented to place, oriented to time and No confusion HENMT: Head: normal to inspection, normocephalic and atraumatic Eyes: Conjunctivae: conjunctivae normal Sclera: sclerae normal Neck: Neck: supple and nontender Resp: Effort & Inspection: normal respiratory effort and no audible wheezes Cardio: Rate: regular rate Rhythm: regular rhythm Skin: General skin exam: no rashes or lesions noted Neuro: General: oriented to person, oriented to place, oriented to time and No confusion Extrem: Right upper extremity: normal to inspection Left upper extremity: normal to inspection Right lower extremity: normal capillary refill, ankle Details: normal to inspection and normal ROM (Dorsiflexion -5 , planter flexion 50, inversion 20, eversion 10 ); no tenderness and no swelling and foot Details: tenderness (plantar heel ), vascular exam (2+ dorsalis pedis pulse ), tendon exam and motor-sensory exam (strength 5/5 throughout . Light touch sensation intact throughout ); no crepitus; no edema Left lower extremity: normal to inspection, ankle Details: normal ROM (dorsiflexion 10, planter flexion 45, inversion 20, eversion 10); no tenderness and no swelling and foot Details: no edema, vascular exam (2+ dorsalis pedis pulse) and motor-sensory exam (strength 5/5. Light touch sensation intact ) light-touch normal; no tenderness and no ecchymosis Psych: Affect: normal affect Assessment and Plan Assessment and plan (1) Plantar fasciitis of right foot: Code(s): M72.2 - Plantar fascial fibromatosis Status: Acute (2) Intractable right heel pain: Code(s): M79.671 - Pain in right foot Status: Acute Assessment and Plan: Failed conservative treatment with injections, PT, stretching and inserts. Pain daily. Discussed nonoperative and operative treatment options with the patient. Risks and benefits of each as well as alternatives were reviewed. All of the patient's questions were answered. The risks of surgery reviewed including but not limited to: Neurovascular damage, wound complication, infection, blood clot, pulmonary embolus, stroke, myocardial infarction, and anesthetic risks up to and including . Continued pain and possible dysfunction were explained. Specific risks of the procedure including later recurrence of deformity. No guarantees were offered. If hardware used, discussed risk of failure/ breakage and possible need for removal. If complications occur, the patient understands the need for further treatment, possible further surgery. Patient verbalizes understanding and wishes to proceed. PLAN: right heel ossatron shockwave treatment.
[2024-12-18] VITALS (9 sets, daily range): BP systolic 93–129; BP diastolic 48–85; PULSE 61–74; RESP 10–20; TEMP 36.1–36.7; O2SAT 96–100; BMI 34.5
--- OUTSIDE RECORDS SUMMARY | 2024-12-18 01:29 | XMS_ITS | Clinical Summary ---
Author Organization [facility] Address [address] [place] [address] Phone Care Team Providers Care Buildings And Grounds Superintendent Name Role Phone Susanna Engle MD Primary Care Provider [phone] Medications No known medications Family History Medical History Relation Name Comments Cancer Father Healthy Mother Relation Name Status Comments Father Mother Social History Tobacco Use Types Packs/Day Years Used Date Smoking Tobacco: Never Assessed Comments Unknown Sex and Gender Information Value Date Recorded Sex Assigned at Not on file Legal Sex Female 6:08 AM OCCUPATIONAL THERAPIST Gender Identity Not on file Sexual Orientation [...] Screening 11/20/2021 INFLUENZA VACCINE (#1) 2024 [place] [address] [employer] OPEN ACCESS Advance Directives For more information, please contact: [phone] * Full Code (Latest Code Status on File) Date Activated Date Inactivated Comments 11/21/2011 9:13 AM 11/22/2011 2:01 AM Care Teams Buildings And Grounds Superintendent Relationship Specialty Start Date End Date Susanna Engle MD PCP - General Family Practice 07/26/21
--- OUTSIDE RECORDS SUMMARY | 2024-12-18 01:29 | XMS_ITS | Clinical Summary ---
Author Organization [facility] Main [place] Address [address] [place] [address] Care Team Providers Care Pr Internship Name Role Phone Susanna Engle MD Primary [...] Arthritis Paternal Grandmother Ema Endometriosis Paternal Grandmother [place] Kidney cancer Paternal Grandmother [place] Osteoporosis Paternal Grandmother Ema Relation Name Status [...] on file Legal Sex Female 9:35 AM SPORTS BOOKMAKER Gender Identity Not on file Sexual Orientation [...] REFLEX TO GENOTYPING Routine 07/28/2021 4:32 PM SPORTS BOOKMAKER Routine gynecological examination from Last 3 Months or Most Recently Relevant to Health Maintenance Results * Pap and High Risk HPV, reflex to Genotyping (07/28/2021 4:32 PM SPORTS BOOKMAKER) Swab (Pap test) 07/28/2021 4 :32 PM SPORTS BOOKMAKER 07/31/2021 9:31 AM SPORTS BOOKMAKER Narrative PATHOLOGY [facility] - 08/03/2021 8:46 AM SPORTS BOOKMAKER EPIC results best viewed via link to PDF [address] [address] Tele: Sarita Alvarado MD - Hydrologic Modeler CYTOLOGY REPORT Note to Patients: This report [...] details. Patient Name: LINA BURCIAGA Address: [address] [place] [address] [place] [address] Gender: F : 1970 (Age: 50) Service: Location: [facility] #: [id number] Patient Type: [facility] SPECIMEN Taken: 07/28/2021 Reported: 08/03/2021 Physician(s): [...] LAB CYTOLOGY ORDERABLES F inal Result PATHOLOGY [facility] Laboratory Receiving [address] [place] [address] from Last 3 Months or Most Recently Relevant to Health Maintenance [facility] [employer] [place] for; to (do)Tailored [facility] [id number] [employer] [place] [facility] [id number] Care Teams Pr Internship Relationship Specialty Start Date End Date Susanna Engle MD PCP - General 12/14/16
--- OUTSIDE RECORDS SUMMARY | 2024-12-18 01:29 | XMS_ITS | Referral Summary ---
Author Organization [facility] Main [place] Address [address] [place] [address] Care Team Providers Care Shop Director Name Role Phone Susanna Engle MD [...] on file Legal Sex Female 9:35 AM DIRECTOR OF EXTENSION WORK Gender Identity Not on file Sexual Orientation [...] REFLEX TO GENOTYPING Routine 07/28/2021 4:32 PM DIRECTOR OF EXTENSION WORK Routine gynecological examination from Last 3 Months or Most Recently Relevant to Health Maintenance Results * Pap and High Risk HPV, reflex to Genotyping (07/28/2021 4:32 PM DIRECTOR OF EXTENSION WORK) Swab (Pap test) 07/28/2021 4 :32 PM DIRECTOR OF EXTENSION WORK 07/31/2021 9:31 AM DIRECTOR OF EXTENSION WORK Narrative PATHOLOGY [facility] - 08/03/2021 8:46 AM DIRECTOR OF EXTENSION WORK [facility] results best viewed via link to PDF [address] [address] Tele: Sarita Alvarado MD - Band Director CYTOLOGY REPORT Note to Patients: This report [...] the details. Patient Name: EL BURCIAGA Address: [address] [place] [address] Gender: F : 1970 (Age: 50) Service: Location: [facility] #: [id number] Patient Type: [facility] SPECIMEN Taken: 07/28/2021 Reported: 08/03/2021 Physician(s): Susanna [...] LAB CYTOLOGY ORDERABLES F inal Result PATHOLOGY [facility] Laboratory Receiving [address] [place] [address] from Last 3 Months or Most Recently Relevant to Health Maintenance Insurance [facility] [id number] BLUE [facility] [place] [id number] Care Teams Shop Director Relationship Specialty Start Date End Date Susanna Engle MD PCP - General 12/14/16
--- NOTE | 2024-12-18 09:07 | WPDHPUPDATE1 ---
History and Physical Update Update Date/Time: 12/18/24 09:07 History and Physical has been reviewed, including an updated exam of the patient. There are NO changes in the patient's condition. Risks, benefits, and alternatives have been discussed and questions answered. Patient agrees to proceed with procedure.
[2024-12-18] MEDS: ACETAMINOPHEN 500 MG TABLET 1000 MG PO (10:25)
--- NOTE | 2024-12-18 11:49 | P.PNAN_ITS ---
Anes - Initial Pre Proc Eval Procedure: Operation Date: 12/18/24 12:00 Proposed Procedures p Right Heel Ossatron Shockwave Treatment - Jose Mccartney MD Date/Time: 12/18/24 11:49 Surgeon: Jose Mccartney MD Pre Op Diagnosis: right plantar fasciitis/ heel pain Patient Data Age: 54 Gender: F Height: 1.75 m Weight: 106.1 kg Last Vital Signs Temp 98.1 F 12/18/24 10:00 Pulse 74 12/18/24 10:00 Resp 16 12/18/24 10:00 BP 117/85 12/18/24 10:00 Pulse Ox 98 12/18/24 10:00 O2 Del Method Room Air 12/18/24 10:00 Allergies Allergy/AdvReac Type Severity Reaction Status Date / Time nitrofurantoin Allergy Unknown MUSCLE AND Verified 12/18/24 10:10 BONE ACHES semaglutide AdvReac Severe constipatio Verified 12/18/24 10:10 n Home Medications ?Medication ?Instructions ?Recorded ?Confirmed ?Type fluticasone propionate 50 1 spray intranasal DAILY 07/21/20 12/08/24 History mcg/actuation nasal spray,suspension (Flonase Allergy Relief) multivitamin 1 tablet PO DAILY 05/12/22 12/08/24 History melatonin 10 mg capsule 10 mg PO QHS 04/17/24 12/08/24 History duloxetine 30 mg capsule,delayed 90 mg (3 x 30 mg) PO DAILY #180 05/20/24 12/18/24 Rx release caps tizanidine 4 mg tablet 4 mg PO QHS PRN Sleep #90 tabs 06/05/24 12/08/24 Rx atorvastatin 20 mg tablet 20 mg PO QHS #90 tabs 06/23/24 12/18/24 Rx meloxicam 15 mg tablet 15 mg PO DAILY 11/18/24 12/08/24 History eszopiclone 3 mg tablet (Lunesta) 3 mg PO QHS #1 tablet 11/19/24 12/18/24 Rx pramipexole 0.125 mg tablet 0.125 mg PO .COMPLEX #120 tabs 11/19/24 12/08/24 Rx Patient hx anesthesia problems: none Family hx anesthesia problems: none Results Review: All pre-operative results and documents have been reviewed as part of the pre- operative evaluation. [facility] Past Medical History Medical History Intractable right heel pain Plantar fasciitis of right foot Degenerative arthritis of left knee Chondromalacia, left knee Depression Acute medial meniscus tear of left knee Carpal tunnel syndrome, bilateral History of COVID-19 reported by patient 2.[address] cline Foot sprain Surgical History Surgical History S/P left knee arthroscopy H/O arthroscopic knee surgery Right knee arthroscopy by Dr. Mccartney on 02/06/19 Family History Family History Grandparent Hypertension Malignant neoplasm of prostate Family history of malignant neoplasm of urinary bladder Diabetes mellitus Family history of cardiovascular disease Family history of Alzheimer's disease Father Malignant neoplasm of prostate Alzheimer disease Mother Family history of cardiovascular disease A-fib Other Family history of arthritis Family history of elevated blood lipids Social History Social History Smoking status: Never smoker Alcohol intake: never Substance use: never Substance use type: does not use Do You Feel Safe in your Home?: Yes Lack of Transportation: No Lack of Food: Never True Current Housing: I Have Housing Concerned About Future Housing: No Difficulty Paying Gas/Electric Bills: No Difficulty Paying for Meds: No Currently Unemployed: No Education: Bachelor's Degree Difficulty w/ Childcare or Family Care: No Living arrangements: with family Spiritual care concerns: No Anes - Eval Final PreProcedure Day of Procedure 12/18/24 11:49 Patient weight: obese Lungs: normal air movement Airway: Mallampati scale class II Neurological: alert and oriented Last oral intake: >/= 8 hours ASA classification: II Emergent: no Anesthetic plan: proceed Anesthesia type and monitoring: general LMA and standard monitoring Results Review: All pre-operative results and documents have been reviewed as part of the pre- operative evaluation. Hyperlipidemia. Informed Consent: The patient's anesthetic plan and its attendant risks and benefits were discussed with the patient/family/POA. Questions were solicited and answers provided to the satisfaction of the patient/family/POA.
--- NOTE | 2024-12-18 12:10 | W.PM.PROC2 ---
Procedure Note - Detailed Date of Procedure 12/18/24 Pre-op Diagnosis right plantar fasciitis/ heel pain Post-op Diagnosis Same Procedure Performed Right heel Ossatron shockwave treatment Surgeon Jose Mccartney MD Block Breaker 1st accounting manager assistant controller Anesthesia General and MAC Indications 54-year-old woman with recalcitrant right heel plantar heel pain. Unrelieved with cortisone injection, physical therapy, stretching, orthotics and cushions. Presents for operative treatment. Description of Procedure Patient identified in the preoperative holding. Informed consent given. Operative extremity marked. Patient marked the area of maximal tenderness on the heel with indelible ink. Patient brought to the operating room where underwent general anesthesia via LMA by anesthesia team. Positioned supine on operating room table. Time-out performed confirming the patient, site of the surgery and the plan. Shockwave unit then positioned for the right heel. Ultrasound gel applied to the heel. Shockwave then applied to heel at an average of 19 kV for 2000 shock deliveries. Concentrated around area of marked maximal tenderness as well as diffusely plantar fascia, heel area and Achilles tendon insertion. Ultrasound gel then removed. Patient awoken from anesthesia and taken to the recovery room in stable condition. Estimated Blood Loss 0 Tourniquet Time Total Tourniquet Time: 0 Drains No Packing No Pathology None sent Complications None Condition Stable Disposition PACU [facility] Billing Surgery - Charge Forward: Surgery Billing ([id number])
[2024-12-18] MEDS: LACTATED RINGERS 1,000 ML 30 ML IV CONT ×2 (12:41)
== END 2024-12-18 14:16 | disposition home or self-care (01) ==
PROVIDERS: PCP Family Medicine; Visit Provider Orthopaedic Surgery
PROC: (CPT 28890; principal; 2024-12-18 12:00)
DX: M72.2 Plantar fascial fibromatosis (principal); M17.12 Unilateral primary osteoarthritis, left knee; E78.5 Hyperlipidemia, unspecified; F32.A Depression, unspecified; G56.03 Carpal tunnel syndrome, bilateral upper limbs; G54.0 Brachial plexus disorders; E66.9 Obesity, unspecified; Z68.34 Body mass index [BMI] 34.0-34.9, adult; Z98.890 Other specified postprocedural states; Z80.42 Family history of malignant neoplasm of prostate; Z80.52 Family history of malignant neoplasm of bladder; Z82.49 Family history of ischemic heart disease and other diseases of the circulatory system
CPT/HCPCS: 28890; A9270; J1100; J2003; J2250; J2405; J2704; J3010; J7120

== ENCOUNTER 2025-01-13 11:01 | Outpatient (CLI) | payer OTHER, BC, SELFPAY ==
--- NOTE | ~2025-01-13 | MM_ITS ---
PROCEDURE: MM SCREENING [facility] BI W NGHIA INDICATION: Asymptomatic, referred for screening mammogram COMPARISON: Oh 20-24 through 09/12/2017 TECHNIQUE: Digital breast tomosynthesis craniocaudal and mediolateral oblique views of Both breasts w ere obtained with computer-aided detection to assist in interpretation of the study. FINDINGS: The breasts are heterogeneously dense, which may obscure small masses. No focal dominant mass, architectural distortion, or suspicious microcalcifications are identified. There are no features to suggest malignancy. IMPRESSION: No evidence of malignancy in the breast. Recommend continued screening mammography BI-RADS 1, NEGATIVE Reviewed, dictated and finalized at location B.
== END 2025-01-13 11:02 | disposition home or self-care (01) ==
LOC: MICIMG 11:03
PROVIDERS: PCP Family Medicine; Visit Provider Family Medicine
DX: Z12.31 Encounter for screening mammogram for malignant neoplasm of breast (principal)
CPT/HCPCS: 77063; 77067

== ENCOUNTER 2025-03-04 13:44 | Outpatient (CLI) | payer OTHER, BC, SELFPAY ==
--- NOTE | ~2025-03-04 | US_ITS ---
US soft tissue UE RT 03/04/2025 14:03 Indication: Palpable area right first finger Procedure: Ultrasound of the right first finger Comparison: Palpable area and right first finger. Evaluation requested to assess for mass or other ab normality. Findings: No discrete mass, cyst or abnormal soft tissue thickening. No abnormal vascularity. Impression: 1: No ultrasound evidence of abnormality in the region of palpable area in the right first finger. Reviewed, dictated and finalized at location A. Impression: 1: No ultrasound evidence of abnormality in the region of palpable area in the right first finger.
== END 2025-03-04 13:45 | disposition home or self-care (01) ==
LOC: MICIMG 13:45
PROVIDERS: PCP Family Medicine; Visit Provider Plastic Surgery
DX: R22.31 Localized swelling, mass and lump, right upper limb (principal)
CPT/HCPCS: 76882

== ENCOUNTER 2025-03-30 09:00 | Outpatient (CLI) | payer OTHER, BC, SELFPAY ==
--- NOTE | ~2025-03-30 | MR_ITS ---
MRI of the brain Clinical History: Other signs and symptoms of cognitive function Technique: Axial and sagittal T1-weighted images were acquired. These were followed by axial T2-weigh ricky, diffusion weighted, gradient, and FLAIR images. Findings: No acute infarct, intracranial hemorrhage or mass lesion seen. There are minimal chronic mi crovascular ischemic changes in the periventricular white matter. Ventricles and subarachnoid spaces are unremarkable. Orbits are unremarkable. Paranasal sinuses and m astoid air cells are clear. Major intracranial flow voids are intact. Sagittal midline structures are intact. IMPRESSION: Minimal chronic microvascular ischemic changes, otherwise unremarkable exam. Reviewed, dictated and finalized at location M.
== END 2025-03-30 09:01 | disposition home or self-care (01) ==
LOC: GOSHIMG 09:00
PROVIDERS: PCP Family Medicine; Visit Provider Family Medicine
DX: R41.89 Other symptoms and signs involving cognitive functions and awareness (principal); R41.3 Other amnesia; Z81.8 Family history of other mental and behavioral disorders
CPT/HCPCS: 70551

== ENCOUNTER 2025-04-08 08:15 | Outpatient (CLI) | payer OTHER, BC, SELFPAY ==
--- OUTSIDE RECORDS SUMMARY | 2025-04-08 08:19 | XMS_ITS | Clinical Summary ---
Author Organization [facility] Main [place] Address [address] [place] [address] Care Team Providers Care Box Repairer Name Role Phone Susanna Engle MD Primary [...] Arthritis Paternal Grandmother Ema Endometriosis Paternal Grandmother [place] Kidney cancer Paternal Grandmother [place] Osteoporosis Paternal Grandmother [place] Relation Name Status Comments Father Yordan Maternal [...] on file Legal Sex Female 9:35 AM BAR PORTER Gender Identity Not on file Sexual Orientation [...] 2:10 PM CDT Height 172.7 cm (5' 7.99) 10/30/2023 2:10 PM CD T Body Mass Index 38.58 10/30/2023 2:10 PM CDT Plan of Treatment Health Maintenance Due Date Last Done Comments Breast Cancer Screening-Mammogram 1970 Colon Cancer Screening-Colonoscopy 1970 Depression Screening 1970 Hepatitis C Screening 1970 Hepatitis B Screening 11/03/1987 Zoster Vaccine (1 of 2) 11/03/2019 Cervical Cancer Screening 07/28/2022 07/28/2021 Regular Well Visit/Exam 18-64 07/28/2022, 02/19/2020 Influenza Vaccine (#1) 2025 2, 05/19/2020 DTaP/Tdap/Td Vaccine (2 - Td or Tdap) 10/12/2031 10/11/2021 Pneumococcal vaccine <65 Aged Out No longer eligible based on patient's age to complete this topic Procedures Procedure Name Priority Date/Time Associated Diagnosis Comments PAP AND HIGH RISK HPV, REFLEX TO GENOTYPING Routine 07/28/2021 4:32 PM BAR PORTER Routine gynecological examination from Last 3 Months or Most Recently Relevant to Health Maintenance Results * Pap and High Risk HPV, reflex to Genotyping (07/28/2021 4:32 PM BAR PORTER) Swab (Pap test) 07/28/2021 4 :32 PM BAR PORTER 07/31/2021 9:31 AM BAR PORTER Narrative PATHOLOGY [facility] - 08/03/2021 8:46 AM BAR PORTER EPIC results best viewed via link to PDF [address] [address] Tele: Sarita Alvarado MD - Sealing Machine Operator CYTOLOGY REPORT Note to Patients: This [...] the details. Patient Name: EL BURCIAGA Address: [address] [place] [address] [place] [address] Gender: F : 1970 (Age: 50) Service: Location: [facility] #: [id number] Patient Type: [facility] SPECIMEN Taken: 07/28/2021 Reported: 08/03/2021 Physician(s): Susanna [...] LAB CYTOLOGY ORDERABLES F inal Result PATHOLOGY [facility] Laboratory Receiving [address] [place] [address] from Last 3 Months or Most Recently Relevant to Health Maintenance Insurance [employer] [facility] [id number] [place] [address] [facility] [id number] COUNTS INCLUDE [facility] AT [facility] [id number] Care Teams Box Repairer Relationship Specialty Start Date End Date Susanna Engle MD PCP - General 12/14/16
--- OUTSIDE RECORDS SUMMARY | 2025-04-08 08:19 | XMS_ITS | Clinical Summary ---
Author Organization [facility] Address [address] [place] [address] Phone Care Team Providers Care Mechanic Foreman Name Role Phone Susanna Engle MD Primary Care Provider [phone] Medications No known medications Encounters Date Type Department Care Team Description 01/26/2025 Abstract [facility] Orthopedic Surgery at the [facility] [address] [place] [phone] Tobi Ornelas MD from Last 3 Months Family History Medical History Relation Name Comments Cancer Father Healthy Mother Relation Name Status Comments Father Mother Social History Tobacco Use Types Packs/Day Years Used Date Smoking Tobacco: Never Assessed Comments Unknown Sex and Gender Information Value Date Recorded Sex Assigned at Not on file Legal Sex Female 6:08 AM CLERK CARRIER Gender Identity Not on file Sexual Orientation [...] 9:20 AM CDT Height 175.3 cm (5' 9) 11/21/2011 9:20 AM CDT Body Mass Index [...] Colorectal Cancer Screening 11/20/2021 INFLUENZA VACCINE (#1) 2025 [place] [address] [employer] [facility] OPEN ACCESS Advance Directives For more information, please contact: [phone] * Full Code (Latest Code Status on File) Date Activated Date Inactivated Comments 11/21/2011 9:13 AM 11/22/2011 2:01 AM Care Teams Mechanic Foreman Relationship Specialty Start Date End Date Susanna Engle MD PCP - General Family Practice 07/26/21
--- OUTSIDE RECORDS SUMMARY | 2025-04-08 08:19 | XMS_ITS | Encounter Summary ---
Author Organization [facility] Address [address] [place] [address] Care Team Providers Care Contract Coordinator Name Role Phone Susanna Engle MD Primary Care Provider Encounter Details Date Type Department Care Team (Late st Contact Info) Description 01/26/2025 Abstract [facility] Orthopedic Surgery at the [facility] [address] [place] [phone] Tobi Ornelas MD [address] [facility] [address] [place] [phone] Social History Tobacco Use Types Packs/Day Years Used Date Smoking Tobacco: Never Assessed Comments Unknown Sex and Gender Information Value Date Recorded Sex Assigned at Not on file 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
[2025-04-08 14:16] LABS: Anion Gap 9 mmol/L (4-12); Blood Urea Nitrogen 15 mg/dL (7-17); Calcium 9.4 mg/dL (8.4-10.2); Carbon Dioxide 27 mmol/L (22-30); Chloride 105 mmol/L (98-107); Estimated Glomerular Filt Rate > 60; Glucose 79 mg/dL (65-110); Potassium 4.7 mmol/L (3.4-5.0); Sodium 141 mmol/L (137-145)
[2025-04-08 14:19] LABS: Alanine Aminotransferase 28 U/L (6-35); Albumin Level 4.7 g/dL (3.5-5.1); Alkaline Phosphatase 120 U/L (38-126); Aspartate Amino Transferase 44 U/L (14-36); Bilirubin,Total 0.3 mg/dL (0.2-1.3); Total Protein 7.7 g/dL (6.3-8.2)
[2025-04-08 14:21] LABS: Hematocrit 43.0 % (37.0-47.0); Hemoglobin 13.5 g/dL (12.0-15.0); Immature Granulocyte Percent A 0.2 % (0-0.5); Lymphocytes Absolute Auto 2.73 K/mm3 (0.9-3.2); Mean Corpuscular HGB Conc 31.4 g/dl (32-36); Mean Corpuscular Hemoglobin 29.9 pg (26-34); Mean Corpuscular Volume 95.1 fl (80-100); Nucleated Red Blood Cells Absolute Auto 0.000 K/mm3 (0.0-0.012); Nucleated Red Blood Cells Perc 0.0 % (0.0-0.2); Platelet Count Result 320 k/mm3 (150-375); Red Blood Count 4.52 M/mm3 (4.2-5.4); White Blood Count 8.2 K/mm3 (4.5-10.0)
== END 2025-04-08 08:16 | disposition home or self-care (01) ==
LOC: ANHGOSHLAB 08:17
PROVIDERS: PCP Family Medicine; Visit Provider Student in an Organized Health Care Education/Training Program
DX: R79.89 Other specified abnormal findings of blood chemistry (principal); Z01.818 Encounter for other preprocedural examination; Z13.0 Encounter for screening for diseases of the blood and blood-forming organs and certain disorders involving the immune mechanism
CPT/HCPCS: 36415; 80048; 80076; 85025

== ENCOUNTER 2025-04-15 09:01 | Outpatient (CLI) | payer OTHER, BC, SELFPAY ==
--- NOTE | ~2025-04-15 | NM_ITS ---
EXAMINATION: NM barb stress w perfusion DATE: 04/15/2025 11:26 INDICATION: Abnormal electrocardiogram TECHNIQUE: Rest images were obtained following intravenous administration of 9.8 mCi Tc99m tetrofosmin (Myoview). The patient was infused intravenously with Lexiscan (Regadenoson). Then, 30.3 mCi Tc99m tetrofosmin (Myoview) was administered intravenously, and stress images were obtained. Data was recon structed into short axis and horizontal and vertical long axis SPECT images. Gated SPECT images were also obtained. COMPARISON: None. FINDINGS: There is no definite reversible or fixed perfusion abnormality to suggest ischemia or infarction. There is normal left ventricular chamber size, wall motion and ejection fraction. Left ventricular ejection fraction measures >70%. IMPRESSION: 1. Normal myocardial perfusion at rest and during stress. 2. Left ventricular ejection fraction measuring >70%. Reviewed, dictated and finalized at location A.
--- NOTE | 2025-04-15 09:06 | EST_ITS ---
Patient Info Name: Lina Beth Age: 54 years : 1970 Gender: Female Ht: 69 in Wt: 250 lbs BSA: 2.40 m2 HR: 53 bpm BP: 119 / 72 mmHg Exam Date: 04/15/2025 9:06 AM Patient Status: O Admit Date: 04/15/2025 Exam Type: CA stress barb w NM A regadenoson stress test was performed. Staff Referring Physician: Ssuanna Engle MD Attending Provider: Susanna Engle MD Exercise Technologist: Pallavi Zee Exercise Physician: Tomer Bush DO Summary 1. 1. Negative lexiscan stress test for ischemic ST changes by ECG criteria. 2. 2. Stable hemodynamics throughout the test. 3. 3. Nuclear scan to follow and will be reported separately. Please correlate with it. 4. 4. Patient informed of the above results. Protocol: Lexiscan Stress ECG Details Stage: REST Duration (min): 2 min : 14 sec HR (bpm): 54 SBP (mmHg): 119 DBP (mmHg): 72 Stage: REST Duration (min): 6 min : 48 sec HR (bpm): 56 SBP (mmHg): 119 DBP (mmHg): 72 Stage: STAGE 1 Duration (min): 1 min : 0 sec HR (bpm): 76 SBP (mmHg): 125 DBP (mmHg): 67 Stage: RECOVERY Duration (min): 1 min : 0 sec HR (bpm): 64 SBP (mmHg): 125 DBP (mmHg): 67 Stage: RECOVERY Duration (min): 2 min : 0 sec HR (bpm): 61 SBP (mmHg): 125 DBP (mmHg): 67 Stage: RECOVERY Duration (min): 3 min : 0 sec HR (bpm): 63 SBP (mmHg): 115 DBP (mmHg): 64 Stage: RECOVERY Duration (min): 3 min : 3 sec HR (bpm): 63 SBP (mmHg): 115 DBP (mmHg): 64 Rest HR: 56 bpm Peak HR: 85 bpm Rest Sys BP: 119 mmHg Peak Sys BP: 125 mmHg Max Pred HR: 165 bpm % Max Pred HR: 52 % Target HR: 140 bpm Max RPP: 10,625 bpm*mmHg Termination Reason: Completed protocol Cardiac Symptoms: Vague sensation in abdomen/legs Total Time: 1 min : 0 sec Rest Kumar BP: 72 mmHg Peak Kumar BP: 67 mmHg Total Dose: 0.4 mg Resting ECG Sinus bradycardia. Stress ECG No ST changes. Arrhythmias None. Report Signatures
--- OUTSIDE RECORDS SUMMARY | 2025-04-15 09:29 | XMS_ITS | Encounter Summary ---
Author Organization [facility] Address [address] [place] [address] Care Team Providers Care Documentation Improvement Specialist Name Role Phone Susanna Engle MD Primary Care Provider Encounter Details Date Type Department Care Team (Late st Contact Info) Description 01/26/2025 Abstract [facility] Orthopedic Surgery at the [facility] [address] [place] [phone] Tobi Ornelas MD [address] [address] [place] [phone] Social History Tobacco Use Types Packs/Day Years Used Date Smoking Tobacco: Never Assessed Comments Unknown Sex and Gender Information Value Date Recorded Sex Assigned at Not on file 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
--- OUTSIDE RECORDS SUMMARY | 2025-04-15 09:29 | XMS_ITS | Clinical Summary ---
Author Organization [facility] [address] [place] Address [address] [place] [address] Care Team Providers Care Medical Assistant Name Role Phone Susanna Engle MD Primary [...] loss Paternal Grandfather Artemio Arthritis Paternal Grandmother Oreana Endometriosis Paternal Grandmother Oreana Kidney cancer Paternal Grandmother Ema Osteoporosis Paternal Grandmother Oreana Relation Name Status Comments Father Yordan Maternal Grandfather Murphy Maternal Grandmother Xochitl Mother Marga Paternal Grandfather Artemio Paternal Grandmother Oreana Social History Tobacco Use Types Packs/Day Years Used Date Smoking Tobacco: Never Smokeless Tobacco: Never Tobacco Cessation:Counseling Given: Not Answered Alcohol Use Standard Drinks/Week Comments Not Currently 1 (1 standard drink = 0.6 oz pure alcohol) Increases hot flashes, not typically drinking alcohol Comments No Sex and Gender Information Value Date Recorded Sex Assigned at Not on file 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 Sex Female 9:35 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 Gender Identity Not on file Sexual Orientation [...] REFLEX TO GENOTYPING Routine 07/28/2021 4:32 PM 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 Routine gynecological examination from Last 3 Months or Most Recently Relevant to Health Maintenance Results * Pap and High Risk HPV, reflex to Genotyping (07/28/2021 4:32 PM 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) Swab (Pap test) 07/28/2021 4 :32 PM 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 07/31/2021 9:31 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 Narrative PATHOLOGY [facility] - 08/03/2021 8:46 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 EPIC results best viewed via link to PDF [address] [address] Tele: Sarita Alvarado MD - Multimedia Artist CYTOLOGY REPORT Note to Patients: This report [...] the details. Patient Name: EL BURCIAGA Address: [address] [place] [address] [place] [address] Gender: F : 1970 (Age: 50) Service: Location: [facility] #: [id number] Patient Type: [facility] SPECIMEN Taken: 07/28/2021 Reported: 08/03/2021 [...] ORDERABLES F inal Result PATHOLOGY [facility] Laboratory Receiving [address] [place] [address] from Last 3 Months or Most Recently Relevant to Health Maintenance Insurance [facility] [id number] [place] [address] [facility] [id number] [facility] [id number] Care Teams Medical Assistant Relationship Specialty Start Date End Date Susanna Engle MD PCP - General 12/14/16
--- OUTSIDE RECORDS SUMMARY | 2025-04-15 09:29 | XMS_ITS | Clinical Summary ---
Author Organization [facility] Address [address] [place] [address] Phone Care Team Providers Care Lease Picker Name Role Phone Susanna Engle MD Primary Care Provider [phone]- [phone] Medications No known medications Encounters Date Type Department Care Team Description 01/26/2025 Abstract [facility] Orthopedic Surgery at the [facility] [address] [place] [address] Tobi Ornelas MD from Last 3 Months Family History Medical History Relation Name Comments Cancer Father Healthy Mother Relation Name Status Comments Father Mother Social History Tobacco Use Types Packs/Day Years Used Date Smoking Tobacco: Never Assessed Comments Unknown Sex and Gender Information Value Date Recorded Sex Assigned at Not on file 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
== END 2025-04-15 09:02 | disposition home or self-care (01) ==
PROVIDERS: PCP Family Medicine; Visit Provider Family Medicine
DX: R94.31 Abnormal electrocardiogram [ECG] [EKG] (principal)
CPT/HCPCS: 78452; 93017; A9502; J2785

== ENCOUNTER 2025-04-21 08:06 | Outpatient (CLI) | payer OTHER, BC, SELFPAY ==
--- OUTSIDE RECORDS SUMMARY | 2025-04-21 08:31 | XMS_ITS | Clinical Summary ---
Author Organization [facility] Address [address] [place] [address] Phone Care Team Providers Care Can Worker Name Role Phone Susanna Engle MD Primary Care Provider [phone]- [phone] Medications No known medications Encounters Date Type Department Care Team Description 01/26/2025 Abstract [facility] Orthopedic Surgery at the [facility] [address] [place] [address] Tobi Ornelas MD from Last 3 Months Family History Medical History Relation Name Comments Cancer Father Healthy Mother Relation Name Status Comments Father Mother Social History Tobacco Use Types Packs/Day Years Used Date Smoking Tobacco: Never Assessed Comments Unknown Sex and Gender Information Value Date Recorded Sex Assigned at Not on file 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
--- OUTSIDE RECORDS SUMMARY | 2025-04-21 08:31 | XMS_ITS | Encounter Summary ---
Author Organization [facility] Address [address] [place] [address] Care Team Providers Care Organizational Development Director Name Role Phone Susanna Engle MD Primary Care Provider Encounter Details Date Type Department Care Team (Late st Contact Info) Description 01/26/2025 Abstract [facility] Orthopedic Surgery at the [facility] [address] [place] [phone] Tobi Ornelas MD [address] [facility] [address] [place] [phone] Social History Tobacco Use Types Packs/Day Years Used Date Smoking Tobacco: Never Assessed Comments Unknown Sex and Gender Information Value Date Recorded Sex Assigned at Not on file 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
--- OUTSIDE RECORDS SUMMARY | 2025-04-21 08:31 | XMS_ITS | Clinical Summary ---
Author Organization [facility] [address] [place] Address [address] [place] [address] Care Team Providers Care Sewage Plant Supervisor Name Role Phone Susanna Engle MD Primary [...] loss Paternal Grandfather Artemio Arthritis Paternal Grandmother Duson Endometriosis Paternal Grandmother Duson Kidney cancer Paternal Grandmother Ema Osteoporosis Paternal Grandmother Duson Relation Name Status Comments Father Yordan Maternal Grandfather Murphy Maternal Grandmother Xochitl Mother Marga Paternal Grandfather Artemio Paternal Grandmother Duson Social History Tobacco Use Types Packs/Day Years Used Date Smoking Tobacco: Never Smokeless Tobacco: Never Tobacco Cessation:Counseling Given: Not Answered Alcohol Use Standard Drinks/Week Comments Not Currently 1 (1 standard drink = 0.6 oz pure alcohol) Increases hot flashes, not typically drinking alcohol Comments No Sex and Gender Information Value Date Recorded Sex Assigned at Not on file 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 Sex Female 9:35 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 Gender Identity Not on file Sexual Orientation [...] REFLEX TO GENOTYPING Routine 07/28/2021 4:32 PM SCALLOP SHUCKER Routine gynecological examination from Last 3 Months or Most Recently Relevant to Health Maintenance Results * Pap and High Risk HPV, reflex to Genotyping (07/28/2021 4:32 PM SCALLOP SHUCKER) Swab (Pap test) 07/28/2021 4 :32 PM SCALLOP SHUCKER 07/31/2021 9:31 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 Narrative PATHOLOGY [facility] - 08/03/2021 8:46 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 EPIC results best viewed via link to PDF [address] [address] Tele: Sarita Alvarado MD - Instructional Technology Director CYTOLOGY REPORT Note to Patients: This [...] the details. Patient Name: EL BURCIAGA Address: [address] [place] [address] [place] [address] Gender: F : 1970 (Age: 50) Service: Location: [facility] #: [id number] Patient Type: [facility] SPECIMEN Taken: 07/28/2021 Reported: 08/03/2021 Physician(s): Susanna [...] LAB CYTOLOGY ORDERABLES F inal Result PATHOLOGY [facility] Laboratory Receiving [address] [place] [address] from Last 3 Months or Most Recently Relevant to Health Maintenance Insurance [employer] [facility] [id number] [place] [address] [facility] [id number] [facility] [id number] Care Teams Sewage Plant Supervisor Relationship Specialty Start Date End Date Susanna Engle MD PCP - General 12/14/16
== END 2025-04-21 08:07 | disposition home or self-care (01) ==
LOC: ANHGOSHLAB 08:07
PROVIDERS: PCP Family Medicine; Visit Provider Student in an Organized Health Care Education/Training Program
DX: Z01.818 Encounter for other preprocedural examination (principal)
CPT/HCPCS: 87081